=== PATIENT | female | born 1960 | race Caucasian/White ===

== ENCOUNTER 2023-02-07 09:20 | Outpatient (AMB) | payer OTHER, SELFPAY ==
--- NOTE | 2023-02-07 09:23 | MHC.PC.OV ---
Vital Signs 02/07/23 09:24 Height 5 ft 8 in Weight 216 lb BMI 32.8 BP 126/84 Blood Pressure Location Lt brachial Position Sitting Pulse 68 Pulse Source Pulse Oximeter Pulse Oximetry (%) 100 Oxygen Delivery Method Room Air Intake Visit Reasons: New Patient Physical Intake Note: Pt is here today for New patient visit. PE Allergies No Known Allergies Allergy (Verified 02/07/23 09:30) Medication List - Last Reconciled 02/07/23 by Tarah Silvestre MD amlodipine 5 mg PO DAILY omeprazole 20 mg PO DAILY telmisartan 40 mg PO DAILY Tobacco use date assessed: 02/07/23 Dental Screening Dental Screen Date: 02/07/23 Did you have a dental visit in the last 12 months?: Yes Did you have a dental problem in the last 6 months where you did not have access to dental care?: No Was dental information given to patient?: Patient has dentist HPI New Patient Physical HPI Details Pt presents for [employer] PE. 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 1. Little interest or pleasure in doing things: not at all 2. Feeling down, depressed, or hopeless: not at all 3. Trouble falling or staying asleep, or sleeping too much: not at all 4. Feeling tired or having little energy: not at all 5. Poor appetite or overeating: not at all 6. Feeling bad about yourself - or that you are a failure or have let yourself or your family down: not at all 7. Trouble concentrating on things, such as reading the newspaper or watching television: not at all 8. Moving or speaking so slowly that other people could have noticed. Or the opposite - being so fidgety or restless that you have been moving around a lot more than usual: not at all 9. Thoughts that you would be better off or of hurting yourself in some way: not at all Total score: 0 Depression Screening Interpretation: Negative Source: Developed by Drs. Emerson Montgomery, Loni Espinosa, Kannan French and colleagues, with an educational jennifer from [employer]. Thrive Questionnaire Date Thrive assessed: 02/07/23 I am a: Patient What is your living situation today?: I have a steady place to live Within the past 12 months, did the food you bought not last and you didn't have the money to get more?: Never true Within the past 12 months, did you worry whether your food would run out before you got money to buy more?: Never true Do you have trouble paying for medicines?: No Do you have trouble getting transportation to medical appointments?: No Do you have trouble paying your heating and electricity bill?: No Do you have trouble taking care of your child, family member or friend?: No Do you have trouble with day-to-day activities such as bathing, preparing meals, shopping, managing finances, etc.?: No Are you currently unemployed and looking for a job?: No Are you interested in more education?: Yes Please select the resources that you would like help with: Education Currently or been in a relationship where the following occur: no concerns reported AUDIT C Alcohol Use Questionnaire (AUDIT-C) 1. How often do you have a drink containing alcohol?: Never 3. How often do you have six or more drinks on one occasion?: Never Total Score: 0 TAINA-7 AMB Questionnaire ATINA-7 Date TAINA - 7 assessed: 02/07/23 Feeling nervous, anxious, or on edge: 0 = Not at all Not being able to stop or control worryin = Not at all Worrying too much about different things: 0 = Not at all Trouble relaxin = Not at all Being so restless that it is hard to sit still: 0 = Not at all Becoming easily annoyed or irritable: 0 = Not at all Feeling afraid as if something awful might happen: 0 = Not at all Total TAINA-7 score (0-4 normal; 5-9 mild; 10-14 moderate; 15-21 severe): 0 Source: Developed by Drs. Emerson Montgomery, Loni Espinosa, Kannan French and colleagues, with an educational jennifer from [employer]. Review of Systems Const All systems reviewed & are unremarkable except as noted in HPI and below Reports no additional complaints Eyes Reports no additional complaints ENT Reports no additional complaints Card Reports no additional complaints Resp Reports no additional complaints GI Reports no additional complaints Reports no additional complaints Musc Reports no additional complaints Physical exam (Primary Care) Vital Signs: Last Vital Signs Pulse 68 02/07/23 09:24 BP 126/84 02/07/23 09:24 Pulse Ox 100 02/07/23 09:24 Oxygen Delivery Method Room Air 02/07/23 09:24 BMI result Body Mass Index 32.8 Tobacco/Smoking Status: Tobacco use Status Tobacco use date assessed 02/07/23 02/07/23 09:38 Patient Tobacco Use Status Never used Tobacco 02/07/23 10:01 e-Cigarette/Vaping Use Never Used 02/07/23 10:01 Depression Screening Interpretation: Negative Currently or been in a relationship where the following occur: no concerns reported Const General: no acute distress HENMT Head: Yes normal to inspection General nose exam: Normal external nose present Mouth: Normal oral and palatal mucosa present Throat: Yes posterior oropharynx normal Eyes General: appearance normal, both eyes and all related structures Neck Neck: Yes no lymphadenopathy and Yes supple Resp Effort & Inspection: normal respiratory effort Auscultation: clear to auscultation bilaterally Cardio Rhythm: regular rhythm Heart sounds: S1 normal heart sound present and S2 normal heart sound present GI Inspection: Yes normal to inspection Palpation (GI): Soft to palpation Percussion: Yes normal to percussion Auscultation: normal bowel sounds Assessment and Plan Assessment & Plan (1) HTN (hypertension): Code(s): I10 - Essential (primary) hypertension Plan: Continue current medications (2) Hyperlipemia: Code(s): E78.5 - Hyperlipidemia, unspecified Plan: Check lipid profile (3) Normal pelvic exam: 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 Panel Fast Today I10 - Essential (primary) hypertension, Z00.00 - Encounter for general adult medical examination without abnormal findings Coding Level of Care Code New Pt Prev Care 40-64y(25772) Diagnoses HTN (hypertension) I10 Hyperlipemia E78.5 Normal pelvic exam Z01.419 Annual physical exam Z00.00 Overweight E66.3 Left ear hearing loss H91.92
[2023-02-07 09:24] VITALS: BP 126/84; PULSE 68; O2SAT 100; BMI 32.8
== END 2023-02-07 10:23 | disposition home or self-care (01) ==
PROVIDERS: PCP Internal Medicine; Visit Provider Internal Medicine
DX: Z00.00 Encounter for general adult medical examination without abnormal findings (principal); I10 Essential (primary) hypertension; E78.5 Hyperlipidemia, unspecified; E66.3 Overweight; H91.92 Unspecified hearing loss, left ear
CPT/HCPCS: 99386

== ENCOUNTER 2023-02-07 10:12 | Outpatient (REF) | payer OTHER, SELFPAY ==
[2023-02-07 13:33] LABS: MANUAL DIFF FLAG NO
[2023-02-07 13:51] LABS: Basophils Percent Auto 0.9 % (0-2); Eosinophils Absolute Auto 0.1 X10*3/uL (0.0-0.4); Eosinophils Percent Auto 2.6 % (0-4); Hematocrit 37.2 % (37.0-47.0); Hemoglobin 12.1 g/dl (12.0-16.0); Imm Gran Abs Auto 0.01 X10*3/uL (0.00-0.03); Imm Gran Pct Auto 0.3 % (0.0-0.4); Lymphocytes Absolute Auto 1.5 X10*3/uL (1.2-4.9); Lymphocytes Percent Auto 43.7 % (20-40); Mean Corpuscular HGB Conc 32.5 g/dl (31.0-35.0); Mean Corpuscular Hemoglobin 28.5 pg (27.0-33.0); Mean Corpuscular Volume 87.7 fL (80.0-98.0); Mean Platelet Volume 9.5 fL (9.4-12.3); Monocytes Absolute Auto 0.2 X10*3/uL (0.1-1.2); Neutrophils Absolute Auto 1.6 x10*3/uL (2.0-8.3); Neutrophils Percent Auto 46.5 % (45-73); Platelet Count 290 X10*3/uL (160-400); Red Blood Count 4.24 X10*6/uL (4.20-5.50); Red Cell Distribution Width 13.9 % (11.0-16.0); White Blood Count 3.5 X10*3/uL (4.8-10.8)
[2023-02-07 14:58] LABS: Alanine Aminotransferase 12 U/L (0-31); Albumin Level 4.4 g/dL (3.5-5.0); Alkaline Phosphatase 64 U/L (39-117); Anion Gap 10 (12-20); Aspartate Amino Transferase 19 U/L (5-31); Bilirubin Total 0.3 mg/dL (0.0-1.0); Blood Urea Nitrogen 15 mg/dL (9-16); Calcium 9.2 mg/dL (8.4-10.2); Carbon Dioxide 26 mmol/L (22-29); Chloride 107 mmol/L (96-108); Cholesterol 263 mg/dL (<200); Estimated Glomerular Filt Rate 48; Glucose Fasting 105 mg/dL (60-99); HDL Cholesterol 62 mg/dL (>40); LDL Cholesterol Calculated 184 mg/dL (<100); Potassium 3.9 mmol/L (3.3-5.1); Sodium 139 mmol/L (135-145); TSH reflex Free T4 2.58 uIU/mL (0.32-4.0); Total Protein 7.6 g/dL (6.5-8.0); Triglycerides 87 mg/dL (<150)
== END 2023-02-07 10:13 | disposition home or self-care (01) ==
LOC: HO.HMGCLDS 10:12
PROVIDERS: PCP Internal Medicine; Visit Provider Internal Medicine
DX: Z00.00 Encounter for general adult medical examination without abnormal findings (principal); I10 Essential (primary) hypertension
CPT/HCPCS: 36415; 80053; 80061; 84443; 85025

== ENCOUNTER 2024-02-15 11:10 | Outpatient (AMB) | payer OTHER, SELFPAY ==
[2024-02-15 12:14] VITALS: BP 120/80; PULSE 62; O2SAT 98; BMI 33.3
--- NOTE | 2024-02-15 12:14 | A.OFFPC_ITS ---
Vital Signs 02/15/24 12:14 Height 5 ft 8 in Weight 219 lb BMI 33.3 BP 120/80 Blood Pressure Location Rt brachial Position Sitting Pulse 62 Pulse Source Pulse Oximeter Pulse Oximetry (%) 98 Intake Visit Reasons: PE Allergies No Known Allergies Allergy (Verified 02/15/24 12:15) Medication List - Last Reconciled 02/15/24 by Tarah Silvestre MD amlodipine 5 mg PO DAILY omeprazole 20 mg PO DAILY pravastatin 40 mg PO BEDTIME telmisartan 40 mg PO DAILY Tobacco use date assessed: 02/15/24 Dental Screening Dental Screen Date: 02/15/24 Did you have a dental visit in the last 12 months?: Yes Did you have a dental problem in the last 6 months where you did not have access to dental care?: No Was dental information given to patient?: Patient has dentist HPI PE HPI Details Patient presents for a physical. She lives in [place] and has been taking care of her aging parents. 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 1. Little interest or pleasure in doing things: not at all 2. Feeling down, depressed, or hopeless: not at all 3. Trouble falling or staying asleep, or sleeping too much: not at all 4. Feeling tired or having little energy: not at all 5. Poor appetite or overeating: not at all 6. Feeling bad about yourself - or that you are a failure or have let yourself or your family down: not at all 7. Trouble concentrating on things, such as reading the newspaper or watching television: not at all 8. Moving or speaking so slowly that other people could have noticed. Or the opposite - being so fidgety or restless that you have been moving around a lot more than usual: not at all 9. Thoughts that you would be better off or of hurting yourself in some way: not at all Total score: 0 Depression Screening Interpretation: Negative Depression Screening Done: Yes 25986 - PHQ-9 Billing: Yes Source: Developed by Drs. Emerson Montgomery, Loni Espinosa, Kannan French and colleagues, with an educational jennifer from [address] Thrive Questionnaire Date Thrive assessed: 02/15/24 I am a: Patient What is your living situation today?: I have a steady place to live Within the past 12 months, did the food you bought not last and you didn't have the money to get more?: Never true Within the past 12 months, did you worry whether your food would run out before you got money to buy more?: Never true Do you have trouble paying for medicines?: No Do you have trouble getting transportation to medical appointments?: No Do you have trouble paying your heating and electricity bill?: No Do you have trouble taking care of your child, family member or friend?: No Do you have trouble with day-to-day activities such as bathing, preparing meals, shopping, managing finances, etc.?: No Are you currently unemployed and looking for a job?: No Are you interested in more education?: No Please select the resources that you would like help with: None Currently or been in a relationship where the following occur: No concerns reported THRIVE Score: 0 AUDIT C Alcohol Use Questionnaire (AUDIT-C) 1. How often do you have a drink containing alcohol?: Never 3. How often do you have six or more drinks on one occasion?: Never Total Score: 0 Score Reviewed/Action Taken: Yes TAINA-7 AMB Questionnaire TAINA-7 Date TAINA - 7 assessed: 02/15/24 Feeling nervous, anxious, or on edge: 0 = Not at all Not being able to stop or control worryin = Not at all Worrying too much about different things: 0 = Not at all Trouble relaxin = Not at all Being so restless that it is hard to sit still: 0 = Not at all Becoming easily annoyed or irritable: 0 = Not at all Feeling afraid as if something awful might happen: 0 = Not at all Total TAINA-7 score (0-4 normal; 5-9 mild; 10-14 moderate; 15-21 severe): 0 Source: Developed by Drs. Emerson Montgomery, Loni Espinosa, Kannan French and colleagues, with an educational jennifer from [address] Review of Systems Const All systems reviewed & are unremarkable except as noted in HPI and below Eyes Reports no additional complaints ENT Reports no additional complaints Card Reports no additional complaints Resp Reports no additional complaints GI Reports no additional complaints Reports no additional complaints Physical exam (Primary Care) Vital Signs: Last Vital Signs Pulse 62 02/15/24 12:14 BP 120/80 02/15/24 12:14 Pulse Ox 98 02/15/24 12:14 BMI result Body Mass Index 33.3 Tobacco/Smoking Status: Tobacco use Status Tobacco use date assessed 02/15/24 02/15/24 12:17 Patient Tobacco Use Status Never used Tobacco 02/15/24 12:17 e-Cigarette/Vaping Use Never Used 02/15/24 12:17 PHQ-9: PHQ-9 Score PHQ-9: Total score 0 02/15/24 12:17 Depression Screening Interpretation: Negative Thrive Assessment: Date of Thrive Assessment Date Thrive assessed 02/15/24 02/15/24 12:17 Currently or been in a relationship where the following occur: No concerns reported Const General: no acute distress HENMT Head: Yes normal to inspection Ears: TM's normal bilaterally Face and sinus: Yes normal facial exam Eyes General: appearance normal, both eyes and all related structures Neck Neck: Yes no lymphadenopathy and Yes supple Resp Effort & Inspection: normal respiratory effort Auscultation: clear to auscultation bilaterally Cardio Rhythm: regular rhythm Heart sounds: S1 normal heart sound present and S2 normal heart sound present GI Inspection: Yes normal to inspection Palpation (GI): Soft to palpation Percussion: Yes normal to percussion Auscultation: normal bowel sounds Assessment and Plan Assessment & Plan (1) HTN (hypertension): Code(s): I10 - Essential (primary) hypertension Plan: Continue current medications (2) Hyperlipemia: Code(s): E78.5 - Hyperlipidemia, unspecified Plan: Continue low-cholesterol diet increase exercise weight loss discussed with the patient. Start pravastatin 40 mg and check lipid profile in 2 months and 1 year (3) Annual physical exam: Code(s): Z00.00 - Encounter for general adult medical examination without abnormal findings Plan: Well-balanced diet regular physical activity weight loss discussed with the patient. She is up-to-date with the mammogram colonoscopy in pelvic exam by technical support 1 software engineer (4) Hx of colonoscopy: Comment: negative 2015 Code(s): Z98.890 - Other specified postprocedural states Orders: Orders Vitamin D 25-OH Total 2 Months E78.5 - Hyperlipidemia, unspecified, I10 - Essential (primary) hypertension Comprehensive [place]. Panel Fast 1 Year E78.5 - Hyperlipidemia, unspecified, I10 - Essential (primary) hypertension, Z00.00 - Encounter for general adult medical examination without abnormal findings Lipid Panel 1 Year E78.5 - Hyperlipidemia, unspecified, I10 - Essential (primary) hypertension, Z00.00 - Encounter for general adult medical examination without abnormal findings TSH reflex Free T4 1 Year E78.5 - Hyperlipidemia, unspecified, I10 - Essential (primary) hypertension, Z00.00 - Encounter for general adult medical examination without abnormal findings Lipid Panel 2 Months E78.5 - Hyperlipidemia, unspecified, I10 - Essential (primary) hypertension Complete Blood Count Auto Diff 1 Year E78.5 - Hyperlipidemia, unspecified, I10 - Essential (primary) hypertension, Z00.00 - Encounter for general adult medical examination without abnormal findings Vitamin D 25-OH Total 1 Year E78.5 - Hyperlipidemia, unspecified, I10 - Essential (primary) hypertension, Z00.00 - Encounter for general adult medical examination without abnormal findings Medications: New pravastatin 40 mg PO BEDTIME 90 tabs 3RF Refilled amlodipine 5 mg PO DAILY 90 tabs 3RF omeprazole 20 mg PO DAILY 90 caps 3RF telmisartan 40 mg PO DAILY 90 tabs 3RF Coding Level of Care Code Est Pt Prev Care 40-64y(79800) Diagnoses HTN (hypertension) I10 Hyperlipemia E78.5 Annual physical exam Z00.00 Hx of colonoscopy Z98.890
== END 2024-02-15 12:50 | disposition home or self-care (01) ==
PROVIDERS: PCP Internal Medicine; Visit Provider Internal Medicine
DX: I10 Essential (primary) hypertension (principal); E78.5 Hyperlipidemia, unspecified; Z00.00 Encounter for general adult medical examination without abnormal findings; Z98.890 Other specified postprocedural states

== ENCOUNTER → 2024-02-15 11:10 | Outpatient (BNVA) | payer OTHER, SELFPAY | PROVIDERS: PCP Internal Medicine; Visit Provider Internal Medicine | DX: Z00.00 Encounter for general adult medical examination without abnormal findings (principal); I10 Essential (primary) hypertension; E78.5 Hyperlipidemia, unspecified; Z98.890 Other specified postprocedural states | CPT/HCPCS: 96127; 99396 ==

== ENCOUNTER 2024-11-13 10:10 | Outpatient (AMB) | payer OTHER, SELFPAY ==
--- NOTE | 2024-11-13 10:12 | A.OFFPC_ITS ---
Vital Signs 11/13/24 10:16 Height 5 ft 8 in Weight 232 lb BMI 35.3 BP 138/74 Blood Pressure Location Lt brachial Position Sitting Respiration 20 Pulse 72 Pulse Source Pulse Oximeter Temp 98.3 F Temp Source Oral Pulse Oximetry (%) 96 Oxygen Delivery Method Room Air Intake Visit Reasons: Follow up swelling in feet requesting referral Intake Note: Pt is here today for a sikc visit. Pt c/o swelling in her feet and ankles. Allergies No Known Allergies Allergy (Verified 11/13/24 10:18) Medication List - Last Reconciled 11/13/24 by Tarah Silvestre MD amlodipine 5 mg PO DAILY cholecalciferol (vitamin D3) PO omeprazole 20 mg PO DAILY pravastatin 40 mg PO BEDTIME telmisartan 40 mg PO DAILY Tobacco use date assessed: 11/13/24 Dental Screening Dental Screen Date: 11/13/24 Did you have a dental visit in the last 12 months?: Yes Did you have a dental problem in the last 6 months where you did not have access to dental care?: No Was dental information given to patient?: Patient has dentist HPI Follow up swelling in feet requesting referral HPI0 Details Pt presents for the follow-up. Hypertension hyperlipidemia controlled on current medications. Patient noticed increased lower extremity swelling wor se at the end of the day. 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 Patient is concerned about her heart because her father was diagnosed with congestive heart failure after mitral valve surgery and he from MRSA sepsis in May at 88. Patient quit her job and has been taking care of her mother with dementia. Patient does not exercise regularly and denies PND orthopnea pa lpitations GI or complaints. 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 1. Little interest or pleasure in doing things: not at all 2. Feeling down, depressed, or hopeless: not at all 3. Trouble falling or staying asleep, or sleeping too much: not at all 4. Feeling tired or having little energy: not at all 5. Poor appetite or overeating: not at all 6. Feeling bad about yourself - or that you are a failure or have let yourself or your family down: not at all 7. Trouble concentrating on things, such as reading the newspaper or watching television: not at all 8. Moving or speaking so slowly that other people could have noticed. Or the opposite - being so fidgety or restless that you have been moving around a lot more than usual: not at all 9. Thoughts that you would be better off or of hurting yourself in some way: not at all Total score: 0 Depression Screening Interpretation: Negative Depression Screening Done: Yes 17895 - PHQ-9 Billing: Yes Source: Developed by Drs. Emerson Montgomery, Loni Espinosa, Kannan French and colleagues, with an educational jennifer from [employer]. Thrive Questionnaire Date Thrive assessed: 11/13/24 I am a: Patient What is your living situation today?: I have a steady place to live Within the past 12 months, did the food you bought not last and you didn't have the money to get more?: Never true Within the past 12 months, did you worry whether your food would run out before you got money to buy more?: Never true Do you have trouble paying for medicines?: No Do you have trouble getting transportation to medical appointments?: No Do you have trouble paying your heating and electricity bill?: No Do you have trouble taking care of your child, family member or friend?: No Do you have trouble with day-to-day activities such as bathing, preparing meals, shopping, managing finances, etc.?: No Are you currently unemployed and looking for a job?: No Are you interested in more education?: Yes Please select the resources that you would like help with: None Currently or been in a relationship where the following occur: No concerns reported THRIVE Score: 0 AUDIT C Alcohol Use Questionnaire (AUDIT-C) 1. How often do you have a drink containing alcohol?: Never 3. How often do you have six or more drinks on one occasion?: Never Total Score: 0 TAINA-7 AMB Questionnaire TAINA-7 Date TAINA - 7 assessed: 11/13/24 Feeling nervous, anxious, or on edge: 0 = Not at all Not being able to stop or control worryin = Not at all Worrying too much about different things: 0 = Not at all Trouble relaxin = Not at all Being so restless that it is hard to sit still: 0 = Not at all Becoming easily annoyed or irritable: 0 = Not at all Feeling afraid as if something awful might happen: 0 = Not at all Total TAINA-7 score (0-4 normal; 5-9 mild; 10-14 moderate; 15-21 severe): 0 Source: Developed by Drs. Emerson Montgomery, Loni Espinosa, Kannan French and colleagues, with an educational jennifer from [employer]. TAINA-7 Assessment Billing TAINA-7 Assessment Tool: TAINA-7 Assessment 31394 Review of Systems Const All systems reviewed & are unremarkable except as noted in HPI and below Eyes Reports no additional complaints ENT Reports no additional complaints Card Reports no additional complaints Resp Reports no additional complaints GI Reports no additional complaints Reports no additional complaints Physical exam (Primary Care) Vital Signs: Last Vital Signs Temp 98.3 F 11/13/24 10:16 Pulse 72 11/13/24 10:16 Resp 20 11/13/24 10:16 BP 138/74 11/13/24 10:16 Pulse Ox 96 11/13/24 10:16 Oxygen Delivery Method Room Air 11/13/24 10:16 BMI result Body Mass Index 35.3 Tobacco/Smoking Status: Tobacco use Status Tobacco use date assessed 11/13/24 11/13/24 10:21 Patient Tobacco Use Status Never used Tobacco 11/13/24 10:21 e-Cigarette/Vaping Use Never Used 06/24/25 10:14 PHQ-9: PHQ-9 Score PHQ-9: Total score 0 11/13/24 11:05 Depression Screening Interpretation: Negative Thrive Assessment: Date of Thrive Assessment Date Thrive assessed 11/13/24 11/13/24 10:21 Currently or been in a relationship where the following occur: No concerns reported Const General: no acute distress Eyes General: appearance normal, both eyes and all related structures Neck Neck: Yes no lymphadenopathy and Yes supple Resp Effort & Inspection: normal respiratory effort Auscultation: clear to auscultation bilaterally Cardio Rhythm: regular rhythm Heart sounds: S1 normal heart sound present and S2 normal heart sound present GI Inspection: Yes normal to inspection Palpation (GI): Soft to palpation Percussion: Yes normal to percussion Auscultation: normal bowel sounds Extrem Other: 1+ pitting edema bilaterally and chronic lymphedema of lower extremities Coding Level of Care Code Est Pt Level 4 (02922) Diagnoses HTN (hypertension) I10 Edema R60.9 Hyperlipidemia E78.5 Additional Codes TAINA-7 Assessment Billing - TAINA-7 Assessment Tool: TAINA-7 Assessment 57019 ([id number]) PHQ-9 - 12786 - PHQ-9 Billing: Yes ([id number]) Assessment & Plan Assessment & Plan (1) HTN (hypertension): Code(s): I10 - Essential (primary) hypertension Category: Medical Plan: Continue current medications (2) Edema: Comment: Lower extremities Code(s): R60.9 - Edema, unspecified Category: Medical Plan: Patient will be referred to her family's anthropology instructor as requested. She was advised to increase physical activity, elevate lower extremities decrease sodium intake and lose weight (3) Hyperlipidemia: Code(s): E78.5 - Hyperlipidemia, unspecified Category: Medical Plan: Continue statin Orders: Referrals Cardiology Referral I10 - Essential (primary) hypertension, R60.9 - Edema, unspecified
[2024-11-13 10:16] VITALS: BP 138/74; PULSE 72; RESP 20; TEMP 36.8; O2SAT 96; BMI 35.3
--- OUTSIDE RECORDS SUMMARY | 2024-11-13 11:16 | XMS_ITS | Referral Summary ---
Author Organization [facility] Address [address] [place] [address] Care Team Providers Care Pre Sales Architect Name Role Phone Nirmala Tarah Primary Care Provider [phone] Medications fluticasone propionate (FLONASE) 50 mcg/actuation nasal spray INSTIL 2 SPRAYS IN EACH NOSTRIL EVERY DAY NEEDED FOR CONGESTION 16 mL 2 1 Active losartan (COZAAR) 25 mg tablet TAKE 2 TABLETS BY MOUTH EVERY DAY 180 tablet 3 2 Active Social History Tobacco Use Types Packs/Day Years Used Date Smoking Tobacco: Never Assessed Comments No Sex and Gender Information Value Date Recorded Sex Assigned at Female 03/09/2024 8:27 AM EDT Legal Sex Female 3:59 PM EDT Gender Identity Not on file Sexual Orientation Not on file Last Filed Vital Signs Vital Sign Reading Time Taken Comments Blood Pressure - - Pulse - - Temperature - - Respiratory Rate - - Oxygen Saturation - - Inhaled Oxygen Concentration - - Weight 90.7 kg (200 lb) 03/09/2024 12:33 PM EDT Height 172.7 cm (5' 8 ) 03/09/2024 12:33 PM EDT Body Mass Index 30.41 03/09/2024 12:33 PM EDT Plan of Treatment Not on file Procedures * Due to [place] state law, this organization might not be sharing negative HIV tests. Procedure Name Priority Date/Time Associated Diagnosis Comments COMPREHENSIVE METABOLIC PANEL Routine 04/16/2024 2:48 PM EST Hyperlipidemia, unspecified hyperlipidemia type Routine general medical examination at a health care facility Hypertension, unspecified type CASPER BILATERAL SCREENING DIGITAL MAMMOGRAM WITH OUSMANE Routine 03/09/2024 12:44 PM EDT Screening mammogram for breast cancer PAP NO HPV, CONVERSION Routine 02/24/2001 10:56 AM EDT from Last 3 Months or Most Recently Relevant to Health Maintenance Results * Due to [place] state law, this organization might not be sharing negative HIV tests. * (ABNORMAL) Comprehensive Metabolic Panel (04/16/2024 2:48 PM EST) NA 141 136 - 145 mmol/L 04/16/2024 3:32 PM EST [facility] K 3.8 3.5 - 5.1 mmol/L 04/16/2024 3:32 PM EST [facility] Cl 106 98 - 109 mmol/L 04/16/2024 3:32 PM EST [facility] CO2 25 22 - 32 mmol/L 04/16/2024 3:32 PM EST [facility] Anion Gap 14 >=0 04/16/2024 3:32 PM EST [facility] Glucose 97 60 - 99 mg/dL 04/16/2024 3:32 PM EST [facility] Creatinine 1.06 0.50 - 1.12 mg/dL 04/16/2024 3:32 PM EST [facility] Calcium 9.2 8.4 - 10.4 mg/dL 04/16/2024 3:32 PM EST [facility] Total Protein 7.3 6.6 - 8.7 g/dL 04/16/2024 3:32 PM EST [facility] Albumin 4.2 3.5 - 5.0 g/dL 04/16/2024 3:32 PM EST [facility] Bilirubin, Total 0.4 0.2 - 1.2 mg/dL 04/16/2024 3:32 PM EST [facility] Alkaline Phosphatase 65 40 - 129 U/L 04/16/2024 3:32 PM EST [facility] AST 21 0 - 33 U/L 04/16/2024 3:32 PM EST [facility] ALT 12 <=33 U/L 04/16/2024 3:32 PM EST [facility] BUN 20 8 - 23 mg/dL 04/16/2024 3:32 PM EST [facility] eGFR 59(L) >=60 mL/min/1. 73m2 04/16/2024 3:32 PM EST [facility] Comment:The estimated glomer ular filtration rate (eGFR) is calculated using a new formula developed by the NKF-ASN task force to eliminate race-based correction factors. The new formula uses serum/plasma creatinine, age, and gender to determine eGFR. A value below 60mls/min might indicate kidney disease and will be flagged. For additional information, see Layne et al, Am J Kidney Dis. 2021;79(2):268- 288, A Unifying Approach for GFR estimation: Recommendations of the NKF-ASN Task Force on Reassessing the Inclusion of Race in Diagnosing Kidney Disease . Globulin, Total 3.1 2.1 - 4.2 g/dL 04/16/2024 3:32 PM [facility] A/G Ratio 1.4(L) 1.5 - 3.0 04/16/2024 3:32 PM EST [facility] Blood Structure of peripheral vein / Unknown Venipuncture / Unknown 04/16/2024 2:48 PM EST 04/16/2024 2:59 PM EST [facility] BLOOD ORDERABLES Final Resul t [facility] [address] [address], * CASPER Bilateral Screening Digital Mammogram With Ousmane (03/09/2024 12:44 PM EDT) Anatomical Region Laterality Modality Breast Bilateral Mammography Narrative 03/17/2024 11:11 AM EDT Exam Date: 03/09/24 [facility] [address] [place], [place] [address] EXAMINATION CASPER Bilateral Screening Digital Mammogram With Ousmane. INDICATION Diandra Rachel is a 64 y.o. female and is seen for: CASPER Bilateral Screening Digital Mammogram With Ousmane. CC and MLO views were obtained. FDA approved Discovery Machine AI (artificial intelligence) software and R2 CAD were used as a concurrent reading aid in the interpretation of this study. COMPARISON Compared to: 03/08/2023 CASPER Bilateral Screening Digital Mammogram With Ousmane, 02/15/2022 CASPER Screening Digital Mammogram, 02/09/2021 [facility]APER Screening Digital Mammogram, 02/04/2020 CASPER Screening Digital Mammogram, 01/29/2019 CASPER Screening Digital Mammogram, and 01/26/2018 CASPER Screening Digital Mammogram Bilateral Breast Findings: The breasts are heterogeneously dense, which may obscure small masses. No significant masses, calcifications or other abnormalities are seen. IMPRESSION BI-RADS ATLAS category (overall): 1 - Negative MANAGEMENT Routine Screening Mammogram in 1 Year is recommended for bilateral. The patient was entered into a reminder system with a subsequent mammography target date. The patient s lifetime risk for breast cancer was calculated using Tyrer-Cuzick: 12.6%. Women with lifetime risk <20% and dense breast tissue may benefit from supplemental screening with breast MRI or automated breast ultrasound (ABUS) depending on risk factors. [email or web address] Breast MRI is available at many [facility] MRI locations. To schedule, enter an MRI order into [facility] Epic (MRI BREAST BILAT SCREENING W WO CONTRAST), call [phone] or [phone], or fax [phone]. ABUS is available at two [facility] sites. To schedule, enter an ABUS order into [facility] (ABUS), contact [facility] Central Scheduling (call [phone] or fax order [phone]), or contact [facility] Central Scheduling (call [phone] or fax order [phone]). If this radiology report contains a blank impression section, it is an incomplete radiology report. Please contact the interpreting radiologist or applicable radiology division as soon as possible to obtain the completed interpretation. Malorie Tavarez MD us Tarah Hernandez IM BI PROCEDURES Final Result * Pap no HPV (02/24/2001 10:56 AM EDT) Path Procedure TPG ([id number]) 1 Edited by: [id number] LB-REINIER [facility] ANATOMIC PATHOLOGY - BIOTECH THREE Specimen Labeled As: 1 CERVICAL/ENDOCER VICAL CYTO MATERIAL - Edited by: [id number] LB-RE [facility] ANATOMIC PATHOLOGY - BIOTECH THREE Diagnosis THINPREP PAP TEST ADEQUACY: Satisfactory but limited by no endocervical component GENERAL DIAGNOSTIC CATEGORY: Within NORMAL limits Edited by: [id number] LEWIST [facility] ANATOMIC PATHOLOGY - BIOTE[facility] THREE Gynecologic Clinical Data Specimen source:, THINPREP (ENDOCERVICAL ONLY) [facility] ANATOMIC PATHOLOGY - BIOTE[facility] THREE Gynecologic Clinical Data First date of LMP:, 02/09/01 [facility] ANATOMIC PATHOLOGY - [facility] THREE Gynecologic Clinical Data Gynecologic findings:, PREV.ABN.PAP. [facility] ANATOMIC PATHOLOGY - [facility] THREE Marker 1 QPG,QC ARENAS [facility] ANATOMIC PATHOLOGY - BIOTECH THREE Marker 2 RG,[facility] ANATOMIC PATHOLOGY - BIOTECH THREE Marker 3 TP,THIN PREP [facility] ANATOMIC PATHOLOGY - BIOTECH THREE Marker 4 WNL,Within Normal limits [facility] ANATOMIC PATHOLOGY - [facility] THREE Cc Results To MAUREEN NESBITT [facility] ANATOMIC PATHOLOGY - BIOTECH THREE Signature REPORT SIGNED: TAI JOHN 03/08/01 [facility] ANATOMIC PATHOLOGY - BIOTECH THREE Sign Out Audit TAI JOHN [id number] FINAL [place] [id number] [facility] ANATOMIC PATHOLOGY - BIOTECH THREE Cytology / Unknown 10:56 AM EDT 02/28/2001 10:56 AM EDT us Historical Conversion Provider LAB HISTORICAL RE SULTS Final Result [facility] ANATOMIC PATHOLOGY - [facility] THREE [address] [place] [address], from Last 3 Months or Most Recently Relevant to Health Maintenance Insurance [facility] MEDICAID Care Teams Pre Sales Architect Relationship Specialty Start Date End Date Tarah Silvestre 1960 [place] [address] PCP - General Internal Medicine 07/16/23
== END 2024-11-13 11:21 | disposition home or self-care (01) ==
LOC: HO.HMCC 10:11
PROVIDERS: PCP Internal Medicine; Visit Provider Internal Medicine
DX: I10 Essential (primary) hypertension (principal); R60.9 Edema, unspecified; E78.5 Hyperlipidemia, unspecified

== ENCOUNTER → 2024-11-13 10:10 | Outpatient (BNVA) | payer OTHER, SELFPAY | PROVIDERS: PCP Internal Medicine; Visit Provider Internal Medicine | DX: I10 Essential (primary) hypertension (principal); R60.9 Edema, unspecified; E78.5 Hyperlipidemia, unspecified | CPT/HCPCS: 96127; 99212 ==

== ENCOUNTER 2025-02-19 11:58 | Outpatient (AMB) | payer OTHER, SELFPAY ==
--- OUTSIDE RECORDS SUMMARY | 2025-02-14 15:30 | XMS_ITS | Encounter Summary ---
Author Organization [facility] Address [address] [place] [address] Care Team Providers Care Outside Sales Professional Name Role Phone Tarah Silvestre Primary Care Provider [phone] Encounter Details Date Type Department Care Team (Late st Contact Info) Description 02/14/2025 3:30 PM EDT Lab [facility] Department [address] [place] [address] Hyperlipidemia, unspecified hyperlipidemia type (Primary Dx); Routine general medical examination at a health care facility; Essential (primary) hypertension Social History Tobacco Use Types Packs/Day Years Used Date Smoking Tobacco: Never Assessed Comments No Sex and Gender Information Value Date Recorded Sex Assigned at Female 03/09/2024 8:27 AM EDT Legal Sex Female 3:59 PM EDT Gender Identity Not on file Sexual Orientation Not on file documented as of this encounter Plan of Treatment Upcoming Encounters Date Type Department Care Team (Late st Contact Info) Description 03/11/2025 2:40 PM EDT Appointment [facility] [address] [place] [address] documented as of this encounter Procedures * Due to [place] state law, this organization might not be sharing negative HIV tests. Procedure Name Priority Date/Time Associated Diagnosis Comments TSH REFLEX FREE T4 Routine 02/14/2025 2: 00 PM EDT Hyperlipidemia, unspecified hyperlipidemia type Routine general medical examination at a health care facility Essential (primary) hypertension CBC AUTO DIFFERENTIAL Routine 02/14/2025 2:00 PM EDT Hyperlipidemia, unspecified hyperlipidemia type Routine general medical examination at a health care facility Essential (primary) hypertension VITAMIN D, 25-HYDROXY, TOTAL, IMMUNOASSAY Routine 02/14/2025 2:00 PM EDT Hyperlipidemia, unspecified hyperlipidemia type Routine general medical examination at a health care facility Essential (primary) hypertension LIPID PANEL Routine 02/14/2025 2:00 PM EDT Hyperlipidemia, unspecified hyperlipidemia type Routine general medical examination at a health care facility Essential (primary) hypertension COMPREHENSIVE METABOLIC PANEL Routine 02/14/2025 2:00 PM EDT Hyperlipidemia, unspecified hyperlipidemia type Routine general medical examination at a health care facility Essential (primary) hypertension documented in this encounter Results * Due to [place] state law, this organization might not be sharing negative HIV tests. * (ABNORMAL) Comprehensive Metabolic Panel (02/14/2025 2:00 PM EDT) NA 140 136 - 145 mmol/L 02/14/2025 3:10 PM EDT [facility] K 4.2 3.5 - 5.1 mmol/L 02/14/2025 3:10 PM EDT [facility] Cl 102 98 - 109 mmol/L 02/14/2025 3:10 PM EDT [facility] CO2 24 22 - 32 mmol/L 02/14/2025 3:10 PM EDT [facility] Anion Gap 18 >=0 02/14/2025 3:10 PM EDT [facility] Glucose 102(H) 60 - 99 mg/dL 02/14/2025 3:10 PM EDT [facility] Creatinine 0.99 0.50 - 1.12 mg/dL 02/14/2025 3:10 PM EDT [facility] Calcium 9.0 8.4 - 10.4 mg/dL 02/14/2025 3:10 PM EDT [facility] Total Protein 7.7 6.6 - 8.7 g/dL 02/14/2025 3:10 PM EDT [facility] Albumin 4.4 3.5 - 5.0 g/dL 02/14/2025 3:10 PM EDT [facility] Bilirubin, Total 0.4 0.2 - 1.2 mg/dL 02/14/2025 3:10 PM EDT [facility] Alkaline Phosphatase 74 40 - 129 U/L 02/14/2025 3:10 PM EDT [facility] AST 24 0 - 33 U/L 02/14/2025 3:10 PM EDT [facility] ALT 18 <=33 U/L 02/14/2025 3:10 PM EDT [facility] BUN 16 8 - 23 mg/dL 02/14/2025 3:10 PM EDT [facility] eGFR 64 >=60 mL/min/1. 73m2 02/14/2025 3:10 PM EDT [facility] Comment:The estimated glomer ular filtration rate (eGFR) is calculated using a new formula developed by the NKF-ASN task force to eliminate race-based correction factors. The new formula uses serum/plasma creatinine, age, and gender to determine eGFR. A value below 60mls/min might indicate kidney disease and will be flagged. For additional information, see Lyane et al, Am J Kidney Dis. 2021;79(2):268- 288, A Unifying Approach for GFR estimation: Recommendations of the NKF-ASN Task Force on Reassessing the Inclusion of Race in Diagnosing Kidney Disease . Globulin, Total 3.3 2.1 - 4.2 g/dL 02/14/2025 3:10 PM EDT [facility] A/G Ratio 1.3(L) 1.5 - 3.0 02/14/2025 3:10 PM EDT [facility] Blood Structure of peripheral vein / Unknown Venipuncture / Unknown 02/14/2025 2:00 PM EDT 02/14/2025 2:11 PM EDT Tarah Silvestre LAB BLOOD ORDERABLES Final Resul t [facility] [address] [place] [address] [address] [place] [address], * Lipid panel (02/14/2025 2:00 PM EDT) Cholesterol 194 mg/dL 02/14/2025 3:10 PM EDT [facility] Comment: DESIRABLE: <200 mg/dL BORDERLINE HIGH: 200-239 mg/dL HIGH: >239 mg/dL Triglycerides 76 mg/dL 02/14/2025 3:10 PM EDT [facility] Comment: NORMAL: <150 mg/dL BORDERLINE HIGH: 150-199 mg/dL HIGH: 200-499 mg/dL VERY HIGH >499 mg/dL Cholesterol, HDL 62 mg/dL 02/15/20 3:10 PM EDT [facility] Comment: DESIRABLE: >60 mg/dL BORDERLINE: 40-59 mg/dL UNDESIRABLE: <40 mg/dL LDL Cholesterol 117 mg/dL 3:10 PM EDT [facility] Comment: OPTIMAL: <100 mg/dL NEAR OPTIMAL: <130 mg/dL BORDERLINE HIGH: 130-159 mg/dL HIGH: 160-189 mg/dL VERY HIGH: >189 mg/dL LDL-C is calculated using the Friedewald calculation. VLDL 15.2 mg/dL 02/14/2025 3:10 PM EDT [facility] Cholesterol/HDL Ratio 3.1 02/14/2025 3:10 PM EDT [facility] Blood Structure of peripheral vein / Unknown Venipuncture / Unknown 02/14/2025 2:00 PM EDT 02/14/2025 2:11 PM EDT Tarah [facility] LAB BLOOD ORDERABLES Final Resul t [facility] [address] [place] [address], * Vitamin D, 25-Hydroxy, Total, Immunoassay (02/14/2025 2:00 PM EDT) Vitamin D 25-OH 35.80 30.00 - 80.00 ng/mL 02/14/2025 2:55 PM EDT [facility] Blood Structure of peripheral vein / Unknown Venipuncture / Unknown 02/14/2025 2:00 PM EDT 02/14/2025 2:10 PM EDT Tarah Silvestre LAB BLOOD ORDERABLES Final Resul t [facility] [address] [facility] [address] [place] [address], * (ABNORMAL) CBC Auto Differential (02/14/2025 2:00 PM EDT) WBC 3.2(L) 4.8 - 10.8 10*3/uL 02/14/2025 2:19 PM EDT [facility] RBC 4.35 4.20 - 5.40 10*6/uL 02/14/2025 2:19 PM EDT [facility] Hemoglobin 12.6 11.7 - 15.5 g/dL 02/14/2025 2:19 PM EDT [facility] Hematocrit 37.1 35.7 - 45.8 % 02/14/2025 2:19 PM EDT [facility] MCV 85.3 81.0 - 99.0 fL 02/14/2025 2:19 PM EDT [facility] MCH 29.0 26.0 - 34.0 pg 02/14/2025 2:19 PM EDT [facility] MCHC 34.0 31.0 - 36.0 g/dL 02/14/2025 2:19 PM EDT [facility] RDW 13.5 12.0 - 15.0 % 02/14/2025 2:19 PM EDT [facility] RDW Standard Deviation 42.2 36.4 - 46.3 fL 02/14/2025 2:19 PM EDT [facility] Platelets 274 140 - 440 10*3/uL 02/14/2025 2:19 PM EDT [facility] MPV 9.0(L) 9.4 - 12.3 fL 02/14/2025 2:19 PM EDT [facility] Neutrophil % 40.2(L) 50.0 - 75.0 % 02/14/2025 2:19 PM EDT [facility] Immature Grans % 0.3 0.0 - 0.9 % 02/14/2025 2:19 PM EDT [facility] Lymphocyte % 47.8(H) 20.0 - 44.0 % 02/14/2025 2:19 PM EDT [facility] Monocyte % 7.9 0.0 - 14.0 % 02/14/2025 2:19 PM EDT [facility] Eosinophil % 2.5 0.0 - 5.0 % 02/14/2025 2:19 PM EDT [facility] Basophil % 1.3 0.0 - 2.0 % 02/14/2025 2:19 PM EDT [facility] Neutrophil # 1.27(L) 1.80 - 7.70 10*3/uL 02/14/2025 2:19 PM EDT [facility] Immature Grans # <0.03 0.00 - 0.03 10*3/uL 02/14/2025 2:19 PM EDT [facility] Lymphocyte # 1.50 1.00 - 4.75 10*3/uL 02/14/2025 2:19 PM EDT [facility] Monocyte # 0.30 0.00 - 0.60 10*3/uL 02/14/2025 2:19 PM EDT [facility] Eosinophil # 0.10 0.00 - 0.80 10*3/uL 02/14/2025 2:19 PM EDT [facility] Basophil # <0.03 0.00 - 0.20 10*3/uL 02/14/2025 2:19 PM EDT [facility] nRBC % 0.0 0 - 0 /100 WBCs 02/14/2025 2:19 PM EDT [facility] nRBC # <0.01 0.00 - 0.13 10*3/uL 02/14/2025 2:19 PM EDT [facility] Blood Structure of peripheral vein / Unknown Venipuncture / Unknown 02/14/2025 2:00 PM EDT 02/14/2025 2:10 PM EDT Tarah Hernandez LAB BLOOD ORDERABLES Final Resul t Performing Organization Address [facility] de Phone Number [facility] [address] [address], [place] [phone] * TSH Reflex Free T4 (02/14/2025 2:00 PM EDT) TSH 2.950 0.270 - 4.200 uIU/mL 02/14/2025 3:10 PM EDT [facility] Blood Structure of peripheral vein / Unknown Venipuncture / Unknown 02/14/2025 2:00 PM EDT 02/14/2025 2:11 PM EDT Tarah Totana LAB BLOOD ORDERABLES Final Resul t Performing Organization Address [facility] Co de Phone Number [facility] [address] [address], [place] [phone] documented in this encounter Visit Diagnoses Diagnosis Hyperlipidemia, unspecified hyperlipidemia type- Primary Routine general medical examination at a health care facility Essential (primary) hypertension Unspecified essential hypertension documented in this encounter Care Teams Outside Sales Professional Relationship Specialty Start Date End Date Tarah Silvestre 1960 [place] [address] PCP - General Internal Medicine 07/16/23 documented as of this encounter
--- NOTE | 2025-02-19 12:46 | A.OFFPC_ITS ---
Vital Signs 02/19/25 12:47 Height 5 ft 8 in Weight 232 lb BMI 35.3 BP 118/86 Blood Pressure Location Lt brachial Position Sitting Pulse 70 Pulse Source Pulse Oximeter Temp 98.5 F Temp Source Oral Pulse Oximetry (%) 99 Oxygen Delivery Method Room Air Intake Visit Reasons: PE Intake Note: Pt is here today for PE. Allergies No Known Allergies Allergy (Verified 02/19/25 12:48) Medication List - Last Reconciled 02/19/25 by Tarah Silvestre MD amlodipine 5 mg PO DAILY cholecalciferol (vitamin D3) PO omeprazole 20 mg PO DAILY pravastatin 40 mg PO BEDTIME telmisartan 40 mg PO DAILY Tobacco use date assessed: 02/19/25 Fall risk assessment: No Falls in past year Last assessed Fall Risk: 02/19/25 Dental Screening Dental Screen Date: 11/13/24 HPI PE HPI Details Pt presents for PE. 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 1. Little interest or pleasure in doing things: not at all 2. Feeling down, depressed, or hopeless: not at all 3. Trouble falling or staying asleep, or sleeping too much: not at all 4. Feeling tired or having little energy: not at all 5. Poor appetite or overeating: not at all 6. Feeling bad about yourself - or that you are a failure or have let yourself or your family down: not at all 7. Trouble concentrating on things, such as reading the newspaper or watching television: not at all 8. Moving or speaking so slowly that other people could have noticed. Or the opposite - being so fidgety or restless that you have been moving around a lot more than usual: not at all 9. Thoughts that you would be better off or of hurting yourself in some way: not at all Total score: 0 Depression Screening Interpretation: Negative Depression Screening Done: Yes Source: Developed by Drs. Emerson Montgomery, Loni Espinosa, Kannan French and colleagues, with an educational jennifer from [employer]. Thrive Questionnaire Date Thrive assessed: 11/12/24 I am a: Patient What is your living situation today?: I have a steady place to live Within the past 12 months, did the food you bought not last and you didn't have the money to get more?: Never true Within the past 12 months, did you worry whether your food would run out before you got money to buy more?: Never true Do you have trouble paying for medicines?: No Do you have trouble getting transportation to medical appointments?: No Do you have trouble paying your heating and electricity bill?: No Do you have trouble taking care of your child, family member or friend?: No Do you have trouble with day-to-day activities such as bathing, preparing meals, shopping, managing finances, etc.?: No Are you currently unemployed and looking for a job?: No Are you interested in more education?: Yes Please select the resources that you would like help with: None Currently or been in a relationship where the following occur: No concerns reported THRIVE Score: 0 TAINA-7 AMB Questionnaire TAINA-7 Date TAINA - 7 assessed: 11/13/24 Feeling nervous, anxious, or on edge: 0 = Not at all Not being able to stop or control worryin = Not at all Worrying too much about different things: 0 = Not at all Trouble relaxin = Not at all Being so restless that it is hard to sit still: 0 = Not at all Becoming easily annoyed or irritable: 0 = Not at all Feeling afraid as if something awful might happen: 0 = Not at all Total TAINA-7 score (0-4 normal; 5-9 mild; 10-14 moderate; 15-21 severe): 0 Source: Developed by Drs. Emerson Montgomery, Loni Espinosa, Kannan French and colleagues, with an educational jennifer from [employer]. Review of Systems Const All systems reviewed & are unremarkable except as noted in HPI and below Eyes Reports no additional complaints ENT Reports no additional complaints Card Reports no additional complaints Resp Reports no additional complaints GI Reports no additional complaints Reports no additional complaints Musc Reports no additional complaints Physical exam (Primary Care) Vital Signs: Last Vital Signs Temp 98.5 F 02/19/25 12:47 Pulse 70 02/19/25 12:47 BP 118/86 02/19/25 12:47 Pulse Ox 99 02/19/25 12:47 Oxygen Delivery Method Room Air 02/19/25 12:47 BMI result Body Mass Index 35.3 Tobacco/Smoking Status: Tobacco use Status Tobacco use date assessed 02/19/25 02/19/25 12:51 Patient Tobacco Use Status Never used Tobacco 02/19/25 12:51 e-Cigarette/Vaping Use Never Used 02/19/25 12:51 PHQ-9: PHQ-9 Score PHQ-9: Total score 0 02/19/25 13:20 Depression Screening Interpretation: Negative Thrive Assessment: Date of Thrive Assessment Date Thrive assessed 11/12/24 02/19/25 12:51 Currently or been in a relationship where the following occur: No concerns reported Const General: no acute distress HENMT Head: Yes normal to inspection Ears: TM's normal bilaterally Mouth: Normal oral and palatal mucosa present Throat: Yes posterior oropharynx normal Eyes General: appearance normal, both eyes and all related structures Neck Neck: Yes no lymphadenopathy and Yes supple Resp Effort & Inspection: normal respiratory effort Auscultation: clear to auscultation bilaterally Cardio Rhythm: regular rhythm Heart sounds: S1 normal heart sound present and S2 normal heart sound present GI Inspection: Yes normal to inspection Palpation (GI): Soft to palpation Percussion: Yes normal to percussion Auscultation: normal bowel sounds Coding Level of Care Code Est Pt Prev Care 40-64y(50[address]) Diagnoses HTN (hypertension) I10 Annual physical exam Z00.00 Hyperlipidemia E78.5 Assessment & Plan Assessment & Plan (1) HTN (hypertension): Code(s): I10 - Essential (primary) hypertension Category: Medical Plan: Continue current medications (2) Annual physical exam: Code(s): Z00.00 - Encounter for general adult medical examination without abnormal findings Category: Medical Plan: Well-balanced diet regular physical activity discussed with the patient. She is up-to-date with the mammogram and Pap smear by [facility] and she is due for colonosc opy next year (3) Hyperlipidemia: Code(s): E78.5 - Hyperlipidemia, unspecified Category: Medical Plan: Continue statin Orders: Orders TSH reflex Free T4 1 Year E55.9 - Vitamin D deficiency, unspecified, E78.5 - Hyperlipidemia, unspecified, I10 - Essential (primary) hypertension, Z00.00 - Encounter for general adult medical examination without abnormal findings Vitamin D 25-OH Total 1 Year E55.9 - Vitamin D deficiency, unspecified, E78.5 - Hyperlipidemia, unspecified, I10 - Essential (primary) hypertension, Z00.00 - Encounter for general adult medical examination without abnormal findings Hemoglobin A1c 1 Year R73.9 - Hyperglycemia, unspecified Comprehensive [employer] [place]. Panel Fast 1 Year E55.9 - Vitamin D deficiency, unspecified, E78.5 - Hyperlipidemia, unspecified, I10 - Essential (primary) hypertension, Z00.00 - Encounter for general adult medical examination without abnormal findings Complete Blood Count Auto Diff 1 Year E55.9 - Vitamin D deficiency, unspecified, E78.5 - Hyperlipidemia, unspecified, I10 - Essential (primary) hypertension, Z00.00 - Encounter for general adult medical examination without abnormal findings Lipid Panel 1 Year E55.9 - Vitamin D deficiency, unspecified, E78.5 - Hyperlipidemia, unspecified, I10 - Essential (primary) hypertension, Z00.00 - Encounter for general adult medical examination without abnormal findings UA w Microscopic 1 Year E55.9 - Vitamin D deficiency, unspecified, E78.5 - Hyperlipidemia, unspecified, I10 - Essential (primary) hypertension, Z00.00 - Encounter for general adult medical examination without abnormal findings Medications: Refilled amlodipine 5 mg PO DAILY 90 tabs 3RF omeprazole 20 mg PO DAILY 90 caps 3RF pravastatin 40 mg PO BEDTIME 90 tabs 3RF telmisartan 40 mg PO DAILY 90 tabs 3RF
[2025-02-19 12:47] VITALS: BP 118/86; PULSE 70; TEMP 36.9; O2SAT 99; BMI 35.3
--- OUTSIDE RECORDS SUMMARY | 2025-02-19 13:14 | XMS_ITS | Encounter Summary ---
Author Organization [facility] Address [address] [place] [address] Phone Care Team Providers Care Binder Operator Name Role Phone Shorty Díaz DO Primary Care Provider Moreno Walter MD Primary Care Provider Elsa Telles MD Primary Care Provider + Tarah Silvestre MD Primary Care Provider [phone] Encounter Details Date Type Department Care Team (Late st Contact Info) Description 02/26/2020 Procedure Pass [facility] MRI, [place] [address] [facility], [address]nd [place] [address] Social History Tobacco Use Types Packs/Day Years Used Date Smoking Tobacco: Never Smokeless Tobacco: Never Alcohol Use Standard Drinks/Week Comments Not Currently 0 (1 standard drink = 0.6 oz pur e alcohol) Comments No Sex and Gender Information Value Date Recorded Sex Assigned at Female 09/20/2023 8:52 AM EDT Legal Sex Female 7:44 PM EST Gender Identity Female 09/20/2023 8:52 AM EDT Sexual Orientation Straight 09/20/2023 8: 52 AM EDT documented as of this encounter Plan of Treatment Upcoming Encounters Date Type Department Care Team (Late st Contact Info) Description 12/04/2025 1:00 PM EDT Office Visit [facility] Cardiology [address], [address] [place] [address] Susan Hernandez MD [address] [place] [address] [id number] [place] [phone] [email or web address] documented as of this encounter Visit Diagnoses Not on filedocumented in this encounter Care Teams Binder Operator Relationship Specialty Start Date End Date Shorty Díaz DO [address] [place] [address] PCP - General Internal Medicine 01/09/20 05/25/20 Moreno Walter MD [address] [place] [address] PCP - General Family Medicine 05/26/20 09/08/21 Elsa Telles MD [address] [place] [address] PCP - General Family Medicine 09/09/21 04/20/23 Tarah Silvestre MD [address] [place] [address] [place] [address] PCP - General Internal Medicine 04/21/23 documented as of this encounter Additional Source Comments The information contained in this document represents components of the legal health record. It is not the complete legal health record.[facility]
--- OUTSIDE RECORDS SUMMARY | 2025-02-19 13:14 | XMS_ITS | Encounter Summary ---
Author Organization [facility] Address [address] [place] [address] Phone Care Team Providers Care Green Marketing Analyst Name Role Phone Moreno Walter MD Primary Care Provider [phone] Elsa Telles MD Primary Care Provider + Tarah Silvestre MD Primary Care Provider [phone] Encounter Details Date Type Department Care Team (Late st Contact Info) Description 06/04/2020 Procedure Pass [facility] - MRI [address] [facility], [address]th [place] [address] Social History Tobacco Use Types Packs/Day Years [...] Description 12/04/2025 1:00 PM EDT Office Visit [facility] [address] [place] [address], [address] [place] [id number] Susan Hernandez MD [address] [place] [address] [id number] [address] [place] [phone] [email or web address] documented as of this encounter Visit Diagnoses Not on filedocumented in this encounter Care Teams Green Marketing Analyst Relationship Specialty Start Date End Date Moreno Walter MD [address] [place] [id number] PCP - General Family Medicine 05/26/20 09/08/21 Elsa Telles MD [address] [place] [address] PCP - General Family Medicine 09/09/21 04/20/23 Tarah Silvestre MD [facility] [address] PCP - General Internal Medicine 04/21/23 documented as of this encounter Additional Source Comments The information contained in this document represents components of the legal health record. It is not the complete legal health record.[facility]
--- OUTSIDE RECORDS SUMMARY | 2025-02-19 13:14 | XMS_ITS | Encounter Summary ---
Author Organization [facility] Address [address] [place] [address] [place] [id number] Phone Care Team Providers Care Hot Room Attendant Name Role Phone Moreno Walter MD Primary Care Provider Elsa Telles MD Primary Care Provider + Tarah Silvestre MD Primary Care Provider [phone] Encounter Details Date Type Department Care Team (Late st Contact Info) Description 07/15/[address], [facility] [place] [address] [facility], [address] [place], [place] [id number] Social History Tobacco Use Types Packs/Day Years [...] Description 12/04/2025 1:00 PM EDT Office Visit [facility] [address], [address] [place], [place] [id number] Susan Hernandez MD [address] [place] [address] [id number] [address] [place] [phone] [email or web address] documented as of this encounter Visit Diagnoses Not on filedocumented in this encounter Care Teams Hot Room Attendant Relationship Specialty Start Date End Date Moreno Walter MD [address] [place] [address] PCP - General Family Medicine 05/26/20 09/08/21 Elsa Telles MD [address] [place] [address] PCP - General Family Medicine 09/09/21 04/20/23 Tarah Silvestre MD [facility] [place] [address] PCP - General Internal Medicine 04/21/23 documented as of this encounter Additional Source Comments The information contained in this document represents components of the legal health record. It is not the complete legal health record.[facility]
--- OUTSIDE RECORDS SUMMARY | 2025-02-19 13:14 | XMS_ITS | Encounter Summary ---
Author Organization [facility] Address [address] [place] [address] Phone Care Team Providers Care Industrial Hygiene Technician Name Role Phone Shorty Díaz DO Primary Care Provider [phone] Moreno Walter MD Primary Care Provider Elsa Telles MD Primary Care Provider + Tarah Silvestre MD Primary Care Provider [phone] Reason for Referral * MRI/CAT Scan - Closed Specialty Diagnoses / Procedures Referred By Alejandro reid Referred To Contact Radiology Diagnoses Adrenal nodule Procedures CT Abdomen/Pelvis CHG CT SCAN,ABDOMENT AND PELVIS,W/O CONTRAST Shorty Díaz DO Phone: tel: fax: Referral ID Status Reason Start Date Expiration Date Visits Re quested Visits Authorized [id number] Closed 04/23/2020 10/20/2020 1 1 Encounter Details Date Type Department Care Team (Late st Contact Info) Description 04/23/2020 Ancillary Orders [facility] Central Scheduling [address] [place], [place] [id number] Shorty Díaz DO [address] [place] [address] Adrenal nodule Social History Tobacco Use Types Packs/Day Years [...] Description 12/04/2025 1:00 PM EDT Office Visit [facility] [place] [address], [address] [place] [address] Susan Hernandez MD [address] [place], [place] [address] [address] [place] [phone] [email or web address] documented as of this encounter Results * CT ABDOMEN/PELVIS WITH AND WITHOUT CONTRAST (05/28/2020 3:25 PM EST) Anatomical Region Laterality Modality Abdomen, Pelvis Computed Tomogra phy 05/29/2020 12:2 1 PM EST Impressions 05/29/2020 12:36 PM EST Left adrenal gland 21 mm nodule demonstrates imaging features compatible with adrenal adenoma. Narrative 05/29/2020 12:36 PM EST PROCEDURE: CT ABDOMEN/PELVIS WITH AND WITHOUT CONTRAST TECHNIQUE: Diagnostic CT of the abdomen and pelvis WITH AND WITHOUT intravenous contrast. COMPARISON: None available at this institution. FINDINGS: LOWER THORAX: Minimal atelectasis. Left atrial enlargement. HEPATOBILIARY: No suspicious hepatic lesions. Multiple liver cysts. No biliary ductal dilatation. SPLEEN: No splenomegaly. PANCREAS: No focal masses or ductal dilatation. ADRENALS: Left adrenal gland 21 mm nodule measures 15 Hounsfield units on precontrast images, 69 Hounsfield units on postcontrast images, and 30 Hounsfield units on 15 minute delay images. Absolute washout is 72% and relative washout is 57% consistent with adrenal adenoma. No right adrenal gland nodule. KIDNEYS/URETERS: No hydronephrosis, stones, or contour deforming mass lesion. PELVIC ORGANS/BLADDER: Unremarkable. PERITONEUM / RETROPERITONEUM: No free air or fluid. LYMPH NODES: No lymphadenopathy. VESSELS: Unremarkable. GI TRACT: No bowel distention or wall thickening. Normal caliber appendix. BONES AND SOFT TISSUES: Fat-containing umbilical hernia with 2 cm neck. Osteopenia. No aggressive osseous lesion. Procedure Note Keon Holland MD - 05/29/2020 PROCEDURE: CT ABDOMEN/PELVIS WITH AND WITHOUT CONTRAST TECHNIQUE: Diagnostic CT of the abdomen and pelvis WITH AND WITHOUT intravenouscontrast. COMPARISON: None available at this institution. FINDINGS: LOWER THORAX: Minimal atelectasis. Left atrial enlargement. HEPATOBILIARY: No suspicious hepatic lesions. Multiple liver cysts. Nobiliary ductal dilatation. SPLEEN: No splenomegaly. PANCREAS: No focal masses or ductal dilatation. ADRENALS: Left adrenal gland 21 mm nodule measures 15 Hounsfield units onprecontrast images, 69 Hounsfield units on postcontrast images, and 30Hounsfield units on 15 minute delay images. Absolute washout is 72% andrelative washout is 57% consistent with adrenal adenoma. No right adrenal gland nodule. KIDNEYS/URETERS: No hydronephrosis, stones, or contour deforming masslesion. PELVIC ORGANS/BLADDER: Unremarkable. PERITONEUM / RETROPERITONEUM: No free air or fluid. LYMPH NODES: No lymphadenopathy. VESSELS: Unremarkable. GI TRACT: No bowel distention or wall thickening. Normal caliberappendix. BONES AND SOFT TISSUES: Fat-containing umbilical hernia with 2 cm neck.Osteopenia. No aggressive osseous lesion. IMPRESSION: Left adrenal gland 21 mm nodule demonstrates imaging features compatiblewith adrenal adenoma. Shorty Díaz DO IMG CT ABD/PELVIS Final Resul t documented in this encounter Visit Diagnoses Diagnosis Adrenal nodule Benign neoplasm of adrenal gland Adrenal nodule Benign neoplasm of adrenal gland documented in this encounter Care Teams Industrial Hygiene Technician Relationship Specialty Start Date End Date Shorty Díaz DO [address] [place] [id number] PCP - General Internal Medicine 01/09/20 05/25/20 Moreno Walter MD [address] [place] [address] PCP - General Family Medicine 05/26/20 09/08/21 Elsa Telles MD [address] [place] [address] PCP - General Family Medicine 09/09/21 04/20/23 Tarah Silvestre MD [address] [place] [address] [place] [address] PCP - General Internal Medicine 04/21/23 documented as of this encounter Additional Source Comments The information contained in this document represents components of the legal health record. It is not the complete legal health record.[facility]
--- OUTSIDE RECORDS SUMMARY | 2025-02-19 13:14 | XMS_ITS | Referral Summary ---
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 Social History Tobacco Use Types Packs/Day Years Used Date Smoking Tobacco: Never Assessed Comments:Smoking History:Nev er smoker Comments Unknown Sex and Gender Information Value Date Recorded Sex Assigned at Not on file Legal Sex Female 8:19 PM EDT Gender Identity Not on file Sexual Orientation Not on file Last Filed Vital Signs Vital Sign Reading Time Taken Comments Blood Pressure 160/102 04/05/2013 10:44 AM EST Pulse 66 04/05/2013 10:44 AM EST Temperature - - Respiratory Rate - - Oxygen Saturation - - Inhaled Oxygen Concentration - - Weight 86.3 kg (190 lb 4.1 oz) 04/05/2013 10:44 AM EST Height 172 cm (5' 7.72 ) 04/05/2013 10:44 AM EST Body Mass Index 29.17 04/05/2013 10:44 AM EST Plan of Treatment Not on file Procedures Procedure Name Priority Date/Time Associated Diagnosis Comments HEMOGLOBIN A1C Routine 04/05/2013 11:45 AM EST from Last 3 Months or Most Recently Relevant to Health Maintenance Results * Hemoglobin a1c (04/05/2013 11:45 AM EST) Hemoglobin A1C 5.3 4.0 - 6.0 % 3 2:41 PM EST SUNQUEST 04/05/2013 11:4 5 AM EST 04/05/2013 11:50 AM EST us Obey Turcios MD LAB BLOOD ORDERABLES Final Re sult [facility] CLIA [id number] [address] [place] [address], from Last 3 Months or Most Recently Relevant to Health Maintenance
--- OUTSIDE RECORDS SUMMARY | 2025-02-19 13:14 | XMS_ITS | Clinical Summary ---
Author Organization [facility] Address [address] [place] [address] Care Team Providers Care Water Supply Engineer Name Role Phone Tarah Silvestre Primary Care Provider [phone] Allergies Active Allergy Reactions Criticality Noted Date Comments Lisinopril Cough 01/15/2025 Medications fluticasone propionate (FLONASE) 50 mcg/actuation nasal spray INSTIL 2 SPRAYS IN EACH NOSTRIL EVERY DAY NEEDED FOR CONGESTION 16 mL 2 1 Active losartan (COZAAR) 25 mg tablet TAKE 2 TABLETS BY MOUTH EVERY DAY 180 tablet 3 2 Active omeprazole (PriLOSEC) 20 mg capsule Take 1 capsule by mouth once a day. 4 Active therapeutic multivitamin (THERAGRAN) tablet Take by mouth. Activ e biotin 10 mg tablet Take by mouth. Activ e betamethasone valerate (VALISONE) 0.1 % ointment APPLY A THIN LAYER TO THE AFFECTED AREA(S) BY TOPICAL ROUTE ONCE DAILY 4 Active azelastine (ASTELIN) 137 mcg (0.1 %) nasal spray 2 SPRAYS BY NASAL ROUTE 2 (TWO) TIMES A DAY. USE IN EACH NOSTRIL DIRECTED 4 Active amLODIPine (NORVASC) 5 mg tablet Take 1 tablet by mouth once a day. 1 Active neomycin-polymyxi n B-dexamethasone (MAXITROL) 3.5mg/mL-10,000 unit/mL-0.1 % ophthalmic suspension INSERT 1 DROP INTO LEFT EYE FOUR TIMES DAILY FOR 7 DAYS. 4 Active pravastatin (PRAVACHOL) 40 mg tablet Take 1 tablet by mouth at bed time. 4 Active sulfacetamide sodium, acne, 10 % suspension Apply topically to the affected area. Active telmisartan (MICARDIS) 40 mg tablet Take 1 tablet by mouth once a day. 2 Active omeprazole (PriLOSEC) 20 mg capsule TAKE ONE 20 MG CAPSULE ORALLY DAILY Active cholecalciferol (VITAMIN D3) 2,000 unit tablet Take 1,000 Units by mouth daily. Active Encounters Date Type Department Care Team Description 02/14/2025 3:30 PM EDT Lab [facility] Site Department [address] [place] [address] Hyperlipidemia, unspecified hyperlipidemia type (Primary Dx); Routine general medical examination at a health care facility; Essential (primary) hypertension 01/31/2025 11:00 AM EDT Office Visit [facility] [address] [place] [phone] Master Automotive Glass Technician: Vanessa Heart MD Visit for suture removal (Primary Dx) 01/17/2025 Telephone [facility] [address] [place] [phone] Master Automotive Glass Technician: Abby Tomas MD 01/16/2025 8:15 AM EDT Procedure visit [facility] [address] [place] [phone] Master Automotive Glass Technician: Vanessa Heart MD Basal cell carcinoma (BCC) of chest [C44.519] (Primary Dx) from Last 3 Months Social History Tobacco Use Types Packs/Day Years Used Date Smoking Tobacco: Never Assessed Comments No Sex and Gender Information Value Date Recorded Sex Assigned at Female 03/09/2024 8:27 AM EDT Legal Sex Female 3:59 PM EDT Gender Identity Not on file Sexual Orientation Not on file Last Filed Vital Signs Vital Sign Reading Time Taken Comments Blood Pressure 148/96 01/16/2025 8:20 AM EDT Pulse 73 01/16/2025 8:20 AM EDT Temperature - - Respiratory Rate - - Oxygen Saturation - - Inhaled Oxygen Concentration - - Weight 90.7 kg (200 lb) 03/09/2024 12:33 PM EDT Height 172.7 cm (5' 8 ) 03/09/2024 12:33 PM EDT Body Mass Index 30.41 03/09/2024 12:33 PM EDT Plan of Treatment Upcoming Encounters Date Type Department Care Team (Late st Contact Info) Description 03/11/2025 2:40 PM EDT Appointment [facility] [address] [place] [phone] Health Maintenance Due Date Last Done Comments Cologuard 1960 Colon Cancer Screening 1960 Colonoscopy 1960 FOBT / Fit Test 1960 HIV Screening 1960 HPV and Pap Smear 1961 Hepatitis C Screening 1960 Sigmoidoscopy 1960 Cervical Cancer Screening 02/25/2004 Pap Smear 02/25/2004 02/24/2001, 12/21, 11/13/1999 Pneumococcal Vaccine: 50+ Years (1 of 1 - PCV) 2011 Zoster Vaccines (2 of 3) 07/06/2021 05/11/2021 Alcohol/Substance Use Screening 05/23/2024 Depression Screening and Follow-Up 05/23/2024 Social Drivers of Health Annual Screening 05/23/2024 COVID-19 Vaccine ( - season) 2025 03/10/2021, 09/05/2020, 08/15/2020 Influenza Vaccine (#1) 2025 , 02/22/2020, 03/23/2019, Additional history exists DTaP,Tdap,and Td Vaccines (2 - Td or Tdap) 10/12/2025 10/13/2015 Basic Metabolic Panel 02/14/2026 02/14/2025 , 01/23/2025, 04/16/2024, Additional history exists Mammogram 03/09/2026 03/09/2024, 02/20, 02/15/2022, Additional history exists Diabetes Screening 02/15/2028 02/14/2025, 0 01/23/2025, 04/16/2024, Additional history exists RSV Vaccine (60+ years old and patients) (1 - 1-dose 75+ series) 01/13/2036 Hepatitis B Vaccines Aged Out No long er eligible based on patient's age to complete this topic Procedures * Due to [place] Edustation.me law, this organization might not be sharing negative HIV tests. Procedure Name Priority Date/Time Associated Diagnosis Comments COMPREHENSIVE METABOLIC PANEL Routine 02/14/2025 2:00 PM [...] a health care facility Essential (primary) hypertension TSH REFLEX FREE T4 Routine 02/14/2025 2: 00 PM EDT Hyperlipidemia, unspecified hyperlipidemia type Routine general medical examination at a health care facility Essential (primary) hypertension MOHS SURGERY Routine 01/16/2025 Basal cell carcinoma (BCC) of chest [C44.519] CASPER BILATERAL SCREENING DIGITAL MAMMOGRAM WITH OUSMANE Routine 03/09/2024 12:44 PM EDT Screening mammogram for breast cancer PAP NO HPV, CONVERSION Routine 02/24/2001 10:56 AM EDT from Last 3 Months or Most Recently Relevant to Health Maintenance Results * Due to [place] Edustation.me law, this organization might not be sharing negative HIV tests. * TSH Reflex Free T4 (02/14/2025 2:00 PM EDT) Pathologist [facility] TSH 2.950 0.270 - 4.200 uIU/mL 02/14/2025 3:10 PM EDT [facility] Blood Structure of peripheral vein / Unknown Venipuncture / Unknown 02/14/2025 2:00 PM EDT 02/14/2025 2:11 PM EDT Tarahhannah Hernandez LAB BLOOD ORDERABLES Final Resul t [facility] [address] [place] [address] [address] [place] [address], [place] [phone] * (ABNORMAL) CBC Auto Differential (02/14/2025 2:00 PM EDT) [facility] WBC 3.2(L) 4.8 - 10.8 10*3/uL 02/14/2025 2:19 PM EDT [facility] RBC 4.35 4.20 - 5.40 10*6/uL 02/14/2025 2:19 PM EDT [facility] Hemoglobin 12.6 11.7 - 15.5 g/dL 02/14/2025 2:19 PM EDT [facility] Hematocrit 37.1 35.7 - 45.8 % 02/14/2025 2:19 PM EDT [facility] MCV 85.3 81.0 - 99.0 fL 02/14/2025 2:19 PM EDT [facility] MCH 29.0 26.0 - 34.0 pg 02/14/2025 2:19 PM EDT [facility] MCHC 34.0 31.0 - 36.0 g/dL 02/14/2025 2:19 PM EDT [facility] RDW 13.5 12.0 - 15.0 % 02/14/2025 2:19 PM EDT [facility] RDW Standard Deviation 42.2 36.4 - 46.3 fL 02/14/2025 2:19 PM EDT [facility] Platelets 274 140 - 440 10*3/uL 02/14/2025 2:19 PM EDT [facility] MPV 9.0(L) 9.4 - 12.3 fL 02/14/2025 2:19 PM EDT [facility] Neutrophil % 40.2(L) 50.0 - 75.0 % 02/14/2025 2:19 PM EDT [facility] Immature Grans % 0.3 0.0 - 0.9 % 02/14/2025 2:19 PM EDT [facility] Lymphocyte % 47.8(H) 20.0 - 44.0 % 02/14/2025 2:19 PM EDT [facility] Monocyte % 7.9 0.0 - 14.0 % 02/14/2025 2:19 PM EDT [facility] Eosinophil % 2.5 0.0 - 5.0 % 02/14/2025 2:19 PM EDT [facility] Basophil % 1.3 0.0 - 2.0 % 02/14/2025 2:19 PM EDT [facility] Neutrophil # 1.27(L) 1.80 - 7.70 10*3/uL 02/14/2025 2:19 PM EDT [facility] Immature Grans # <0.03 0.00 - 0.03 10*3/uL 02/14/2025 2:19 PM EDT [facility] Lymphocyte # 1.50 1.00 - 4.75 10*3/uL 02/14/2025 2:19 PM EDT [facility] Monocyte # 0.30 0.00 - 0.60 10*3/uL 02/14/2025 2:19 PM EDT [facility] Eosinophil # 0.10 0.00 - 0.80 10*3/uL 02/14/2025 2:19 PM EDT [facility] Basophil # <0.03 0.00 - 0.20 10*3/uL 02/14/2025 2:19 PM EDT [facility] nRBC % 0.0 0 - 0 /100 WBCs 02/14/2025 2:19 PM EDT [facility] nRBC # <0.01 0.00 - 0.13 10*3/uL 02/14/2025 2:19 PM EDT [facility] Blood Structure of peripheral vein / Unknown Venipuncture / Unknown 02/14/2025 2:00 PM EDT 02/14/2025 2:10 PM EDT [facility] BLOOD ORDERABLES Final Resul t Performing Organization Address City/[facility]/ZIP Co de Phone Number [facility] [address] [address], [place] [phone] * Vitamin D, 25-Hydroxy, Total, Immunoassay (02/14/2025 2:00 PM EDT) Vitamin D 25-OH 35.80 30.00 - 80.00 ng/mL 02/14/2025 2:55 PM EDT [facility] Blood Structure of peripheral vein / Unknown Venipuncture / Unknown 02/14/2025 2:00 PM EDT 02/14/2025 2:10 PM EDT [facility] BLOOD ORDERABLES Final Resul t Performing Organization Address [facility]/ZIP Co de Phone Number [facility] [address] [address], [place] [phone] * Lipid panel (02/14/2025 2:00 PM EDT) Cholesterol 194 mg/dL 02/14/2025 3:10 PM EDT [facility] Comment: DESIRABLE: <200 mg/dL BORDERLINE HIGH: 200-239 mg/dL HIGH: >239 mg/dL Triglycerides 76 mg/dL 02/14/2025 3:10 PM EDT [facility] Comment: NORMAL: <150 mg/dL BORDERLINE HIGH: 150-199 mg/dL HIGH: 200-499 mg/dL VERY HIGH >499 mg/dL Cholesterol, HDL 62 mg/dL 02/15/20 3:10 PM EDT [facility] Comment: DESIRABLE: >60 mg/dL BORDERLINE: 40-59 mg/dL UNDESIRABLE: <40 mg/dL LDL Cholesterol 117 mg/dL 3:10 PM EDT [facility] Comment: OPTIMAL: <100 mg/dL NEAR OPTIMAL: <130 mg/dL BORDERLINE HIGH: 130-159 mg/dL HIGH: 160-189 mg/dL VERY HIGH: >189 mg/dL LDL-C is calculated using the Friedewald calculation. VLDL 15.2 mg/dL 02/14/2025 3:10 PM EDT [facility] Cholesterol/HDL Ratio 3.1 02/14/2025 3:10 PM EDT [facility] Blood Structure of peripheral vein / Unknown Venipuncture / Unknown 02/14/2025 2:00 PM EDT 02/14/2025 2:11 PM EDT Tarah Silvestre LAB BLOOD ORDERABLES Final Resul t [facility] [address] [place] [address] [address] [place] [address], [place] [phone] * (ABNORMAL) Comprehensive Metabolic Panel (02/14/2025 2:00 PM EDT) NA 140 136 - 145 mmol/L 02/14/2025 3:10 PM EDT [facility] K 4.2 3.5 - 5.1 mmol/L 02/14/2025 3:10 PM EDT [facility] Cl 102 98 - 109 mmol/L 02/14/2025 3:10 PM EDT [facility] CO2 24 22 - 32 mmol/L 02/14/2025 3:10 PM EDT [facility] Anion Gap 18 >=0 02/14/2025 3:10 PM EDT [facility] Glucose 102(H) 60 - 99 mg/dL 02/14/2025 3:10 PM EDT [facility] Creatinine 0.99 0.50 - 1.12 mg/dL 02/14/2025 3:10 PM EDT [facility] Calcium 9.0 8.4 - 10.4 mg/dL 02/14/2025 3:10 PM EDT [facility] Total Protein 7.7 6.6 - 8.7 g/dL 02/14/2025 3:10 PM EDT [facility] Albumin 4.4 3.5 - 5.0 g/dL 02/14/2025 3:10 PM EDT [facility] Bilirubin, Total 0.4 0.2 - 1.2 mg/dL 02/14/2025 3:10 PM EDT [facility] Alkaline Phosphatase 74 40 - 129 U/L 02/14/2025 3:10 PM EDT [facility] AST 24 0 - 33 U/L 02/14/2025 3:10 PM EDT [facility] ALT 18 <=33 U/L 02/14/2025 3:10 PM EDT [facility] BUN 16 8 - 23 mg/dL 02/14/2025 3:10 PM EDT [facility] eGFR 64 >=60 mL/min/1. 73m2 02/14/2025 3:10 PM EDT [facility] Comment:The estimated glomer ular filtration rate (eGFR) is calculated using a new formula developed by the NKF-ASN task force to eliminate race-based correction factors. The new formula uses serum/plasma creatinine, age, and gender to determine eGFR. A value below 60mls/min might indicate kidney disease and will be flagged. For additional information, see Xi et al, Am J Kidney Dis. 2021;79(2):268- 288, A Unifying Approach for GFR estimation: Recommendations of the NKF-ASN Task Force on Reassessing the Inclusion of Race in Diagnosing Kidney Disease . Globulin, Total 3.3 2.1 - 4.2 g/dL 02/14/2025 3:10 PM EDT [facility] A/G Ratio 1.3(L) 1.5 - 3.0 02/14/2025 3:10 PM EDT [facility] Blood Structure of peripheral vein / Unknown Venipuncture / Unknown 02/14/2025 2:00 PM EDT 02/14/2025 2:11 PM EDT Tarah Silvestre LAB BLOOD ORDERABLES Final Resul t [facility] [address] [place] [address], * MOHS Surgery (01/16/2025) Narrative [facility] - 01/16/2025 Yancy Oviedo [place] 01/16/2025 3:41 PM MOHS Surgery Date/Time: 01/16/2025 8:15 AM Performed by: Vanessa Stack MD Authorized by: Vanessa Stack MD Procedure (Free Text): BCC Left Medial Superior Chest Patient identity confirmed?: Name and with patient and Verbally Written consent obtained?: Yes Risks and benefits discussed?: Yes Consent given by?: Patient Patient states understanding of procedure being performed?: Yes Patient's understanding of procedure matches consent?: Yes Procedure consent matches procedure to be performed: Yes All relevant documents/tests are correctly identified, labeled, and matched to patient: Yes Relevant tests/ Imaging studies available/reviewed: Yes Correct site marked: Yes Required blood products, implants, devices and special equipment available: N/A Immediately prior to the procedure a time out was called: Yes An attending physician was present for the procedure OR the procedure was performed by an Advanced Practice Provider (Residents: A yes indicates you are attesting to the attending being present for the dumont portions of the procedure. Checking yes when the attending was not present may result in fraudulent charges being submitted): Yes Attending Provider:: Vanessa Stack Fellow: Pat Nurse: Marie MOA: Laura Oviedo Norma R Patient Fasting?: Yes Allergies: Lisinopril Implant Devices: Other (see comment) Other (comment): No Implanted Devices Blood Thinners?: No Joint Replacement?: No Antibiotics Before the Dentist?: No Cautery set up:: [place] [facility] Grounding pad site:: Left Arm Surgical Prep: Chlorhexidine 12 mL lidocaine-epinephrine (PF) 1%-1:220,000 (PF) 1%-1:220,000 Patient Condition: Stable Wound Treated With:: Vaseline Bandages to remain in place for:: 48 hours Follow up required:: Two Weeks Discharge: Patient tolerated the procedure well with no immediate complications, Pressure dressing applied, Wound care reviewed verbally and in writing and Patient discharged in good condition Procedure Note Yancy Oviedo MA - 01/16/2025 8:15 AM EDT MOHS Surgery Date/Time: 01/16/2025 8:15 AM Performed by: Vanessa Stack MD Authorized by: Vanessa Stack MD Procedure (Free Text): BCC Left Medial Superior Chest Patient identity confirmed?: Name and with patient and Verbally Written consent obtained?: Yes Risks and benefits discussed?: Yes Consent given by?: Patient Patient states understanding of procedure being performed?: Yes Patient's understanding of procedure matches consent?: Yes Procedure consent matches procedure to be performed: Yes All relevant documents/tests are correctly identified, labeled, andmatched to patient: Yes Relevant tests/ Imaging studies available/reviewed: Yes Correct site marked: Yes Required blood products, implants, devices and special equipmentavailable: N/A Immediately prior to the procedure a time out was called: Yes An attending physician was present for the procedure OR the procedure wasperformed by an Advanced Practice Provider (Residents: A yes indicates youare attesting to the attending being present for the dumont portions of theprocedure. Checking yes when the attending was not present may result infraudulent charges being submitted): Yes Attending Provider:: Vanessa Stack Fellow: Pat Nurse: Marie MOA: Laura Oviedo Norma R Patient Fasting?: Yes Allergies: Lisinopril Implant Devices: Other (see comment) Other (comment): No Implanted Devices Blood Thinners?: No Joint Replacement?: No Antibiotics Before the Dentist?: No Cautery set up:: [facility] Grounding pad site:: Left Arm Surgical Prep: Chlorhexidine 12 mL lidocaine-epinephrine (PF) 1%-1:220,000 (PF) 1%-1:220,000 Patient Condition: Stable Wound Treated With:: Vaseline Bandages to remain in place for:: 48 hours Follow up required:: Two Weeks Discharge: Patient tolerated the procedure well with no immediatecomplications, Pressure dressing applied, Wound care reviewed verbally andin writing and Patient discharged in good condition us Vanessa Stack MD DERM PROCEDURE ORDERABLES Final Result [facility] * [facility] Bilateral Screening Digital Mammogram With Ousmane (03/09/2024 12:44 PM EDT) Anatomical Region Laterality Modality Breast Bilateral Mammography Narrative 03/17/2024 11:11 AM EDT Exam Date: 03/09/[address] [address] EXAMINATION CASPER Bilateral Screening Digital Mammogram With Ousmane. INDICATION Diandra Rachel is a 64 y.o. female and is seen for: CASPER Bilateral Screening Digital Mammogram With Ousmane. CC and MLO views were obtained. FDA approved [employer] AI (artificial intelligence) software and R2 CAD were used as a concurrent reading aid in the interpretation of this study. COMPARISON Compared to: 03/08/2023 [facility] Bilateral Screening Digital Mammogram With Ousmane, 02/15/2022 [facility] Screening Digital Mammogram, 02/09/2021 [facility] Screening Digital Mammogram, 02/04/2020 [facility] Screening Digital [...] breast ultrasound (ABUS) depending on risk factors. [email or web address] Breast MRI is available at many [facility] MRI locations. To schedule, enter an MRI order into [facility] (MRI BREAST BILAT SCREENING W WO CONTRAST), call [phone] or [phone], or fax [phone]. ABUS is available at two [facility] sites. To schedule, enter an ABUS order into [facility] (ABUS), contact [facility] Scheduling (call [phone] or fax order [phone]), or contact [facility] Central Scheduling (call [phone] or fax order [phone]). If this radiology report contains a blank impression section, it is an incomplete radiology report. Please contact the interpreting radiologist or applicable radiology division as soon as possible to obtain the completed interpretation. Malorie Tavarez MD Tarah Silvestre [facility] BI PROCEDURES Final Result * Pap no HPV (02/24/2001 10:56 AM EDT) Path Procedure TPG ([id number]) 1 Edited by: [id number] LB-REINIER [facility] Specimen Labeled As: 1 CERVICAL/ENDOCER VICAL CYTO MATERIAL - Edited by: [id number] LB-RE [facility] Diagnosis THINPREP PAP TEST ADEQUACY: Satisfactory but limited by no endocervical component GENERAL DIAGNOSTIC CATEGORY: Within NORMAL limits Edited by: [id number] JAN [facility] Gynecologic Clinical Data Specimen source:, THINPREP (ENDOCERVICAL ONLY) [facility] Gynecologic Clinical Data First date of LMP:, 02/09/01 [facility] Gynecologic Clinical Data Gynecologic findings:, PREV.ABN.PAP. [facility] Marker 1 QPG,QC ARENAS [facility] Marker 2 RGTAI [facility] - [facility] Marker 3 TP,THIN PREP [facility] Marker 4 WNL,Within Normal limits [facility] Cc Results To MAUREEN NESBITT [facility] Signature REPORT SIGNED: TAI JOHN 03/08/01 [facility] Sign Out Audit APRILTAI BROWN [id number] FINAL [place] [id number] [facility] Cytology / Unknown 1 10:56 AM EDT 02/28/2001 10:56 AM EDT us Historical Conversion Provider LAB HISTORICAL RE SULTS Final Result [facility] [address] [place] [address], from Last 3 Months or Most Recently Relevant to Health Maintenance Insurance [employer] Care Teams Water Supply Engineer Relationship Specialty Start Date End Date Tarah Silvestre 1960 [place] [address] PCP - General Internal Medicine 07/16/23
--- OUTSIDE RECORDS SUMMARY | 2025-02-19 13:14 | XMS_ITS | Clinical Summary ---
Author Organization [facility] Address [address] [place] [phone] Phone Care Team Providers Care On Site Nurse Name Role Phone Tarah Silvestre MD Primary Care Provider [phone] Allergies No known active allergies Medications therapeutic multivitamin tablet Take 1 tablet by mouth daily. Active acetaminophen (TYLENOL) 325 mg tablet Take 2 tablets (650 mg total) by mouth every 6 (six) hours as needed for mild pain or fever. 0 0 Active Additional Information Patient not taking.Reported on 08/30/2024 senna (SENOKOT) 8.6 mg tablet Take 2 tablets by mouth nightly at bedtime. 0 Active omeprazole (PRILOSEC) 20 MG capsule Take 1 capsule (20 mg total) by mouth daily. 10 capsule 0 Active white petrolatum-reexaminer al oiL (REFRESH P.M.) 57.3-42.5 % Oint Place 1 application into each eye nightly at bedtime as needed. 1 Tube 1 0 Active Additional Information Patient not taking.Reported on 08/30/2024 GENTEAL TEARS MILD 0.1-0.3 % PLACE 1 DROP INTO EACH EYE 3 (THREE) TIMES A DAY NEEDED.DISCON TINUED ITEM 15 mL 0 Active amLODIPine (NORVASC) 5 MG tablet Take 5 mg by mouth daily. Active pravastatin (PRAVACHOL) 40 MG tablet Take 40 mg by mouth daily. Active telmisartan (MICARDIS) 40 MG tablet Take 40 mg by mouth daily. Active cholecalciferol (VITAMIN D3) 2,000 unit tablet Take 1,000 Units by mouth daily. 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, [address] [place] [address] Caren Saha RN 01/29/2025 1:00 PM EDT Procedure visit [facility] 1 [place] [address] Encounter for cosmetic procedure (Primary Dx) 01/24/2025 Telephone [facility] Cardiology [facility] [address] [facility], [address] [place] [address] Caren Saha RN 01/23/2025 12:42 PM EDT - 01/23/2025 11:59 PM EDT Hospital Encounter [facility] [address] [place] [address] Discharge Disposition: Home or Self Care 01/23/2025 Orders Only [facility] [address] [place] [address] Susan Hernandez MD Essential hypertension (Primary Dx) 01/14/2025 Telephone [facility] Cardiology [facility] [address] [facility], [address] [address] Caren Saha RN 01/01/2025 1:00 PM EDT Procedure visit [facility] 1 [place] [address] Encounter for cosmetic procedure (Primary Dx) 12/29/2024 9:27 AM EDT - 12/29/2024 11:59 PM EDT Hospital Encounter [place] [address] [facility], [address] [place] [address] Susan Hernandez MD Discharge Disposition: Home or Self Care 12/07/2024 1:00 PM EDT Telemedicine - audio only [facility] Department of Neurosurgery [address] [place] [address] Sera Barclay PA-C Vestibular schwannoma (Primary Dx) 12/04/2024 10:00 AM EDT Office Visit [facility] Cardiology [facility] [address] [facility], [address] [place] [address] Susan Hernandez MD Palpitations (Primary Dx); Localized edema; Essential hypertension; Cardiac risk counseling; Obesity (BMI 30.0-34.9) 12/04/2024 Procedure Pass [facility] [address] [facility], [address] [place] [address] 12/01/2024 1:01 PM EDT - 12/01/2024 11:59 PM EDT Hospital Encounter MRI, [facility] - [address], [address] [place] [address] Bola Burgess MD Discharge Disposition: Home or Self Care 11/27/2024 1:00 PM EDT Procedure visit [facility] 1 [place] [address] Encounter for cosmetic procedure (Primary Dx) 09/11/2024 Procedure Pass MRI, [facility] - [address], [address] [place] [address] from Last 3 Months Immunizations Immunization Administration Dates Next Due Influenza Quadrivalent Preservative Free IM 06/2019 Family History Medical History Relation Comments Mitral valve insufficiency Father Relation Status Comments Father (Age 88) Mother Alive Social History Tobacco Use Types Packs/Day Years Used Date Smoking Tobacco: Never Smokeless Tobacco: Never Tobacco Cessation:Counseling Given: Not Answered Alcohol Use Standard Drinks/Week Comments Not Currently 0 (1 standard drink = 0.6 oz pur e alcohol) Education Answer Date Recorded Are you interested in more education? Not on balta e 09/16/2022 Are you concerned about learning? Not on file 09/16/2022 No 09/16/2022 No 09/16/2022 Digital Access Answer Date Recorded No 10/18/2022 No 10/18/2022 Reliable internet access at home? Not on file 10/18/2022 Device with a working camera? Not on file Comments No Sex and Gender Information Value Date Recorded Sex Assigned at Female 09/20/2023 8:52 AM EDT Legal Sex Female 7:44 PM EST Gender Identity Female 09/20/2023 8:52 AM EDT Sexual Orientation Straight 09/20/2023 8: 52 AM EDT Last Filed Vital Signs Vital Sign Reading Time Taken Comments Blood Pressure 145/90 12/04/2024 10:09 AM EDT Pulse 67 12/04/2024 10:09 AM EDT Temperature 36.6 C (97.9 F) 08/30/2024 11:54 AM EDT Respiratory Rate 16 08/30/2024 11:54 AM EDT Oxygen Saturation 98% 08/30/2024 11:54 AM EDT Inhaled Oxygen Concentration - - Weight 104.3 kg (230 lb) 12/04/2024 10:09 AM EDT Height 172.7 cm (5' 7.99 ) 04/16/2020 1:04 PM ES T Body Mass Index 34.98 04/16/2020 1:04 PM EST Plan of Treatment Upcoming Encounters Date Type Department Care Team (Late st Contact Info) Description 12/04/2025 1:00 PM EDT Office Visit [facility] Cardiology [facility] [address] [place] [address], [address] [place], [place] [id number] Susan Hernandez MD [address] [place] [address] [address] [place] [address] [email or web address] Health Maintenance Due Date Last Done Comments Adult Td,Tdap Booster 1961 DEPRESSION SCREENING 1973 HEPATITIS C SCREENING 1979 HIV ONE-TIME SCREENING (18-65 YEARS) 1979 PAP SMEAR 1982 COLOGUARD 2006 COLONOSCOPY 2006 COLORECTAL CANCER SCREENING 2006 FIT TEST 2006 FOBT 2006 SIGMOIDOSCOPY 2006 VIRTUAL COLONOSCOPY 2006 PNEUMOCOCCAL VACCINES (50+ years) (1 of 1 - PCV) 2011 ZOSTER VACCINES (1 of 2) 2011 INFLUENZA VACCINE (#1) 2024 02/22/2020 COVID-19 VACCINE (1 - 2023- season) 2025 BLOOD PRESSURE 06/06/2025 12/04/2024 CREATININE LEVEL 01/23/2026 01/23/2025, 06/2019, 02/21/2020, Additional history exists POTASSIUM LEVEL 01/23/2026 01/23/2025, 06/2019, 02/21/2020, Additional history exists MAMMOGRAM 03/09/2026 03/09/2024, 02/20, 03/08/2023 SCREENING FOR DIABETES 01/24/2028 01/23/2025 LIPID PANEL 01/23/2030 01/23/2025, 03/24, 04/16/2024, Additional history exists RSV VACCINE (1 - 1-dose 75+ series) 01/13/2036 SMOKING STATUS SCREENING (Once After 26 Yrs) Completed 12/04/2024 HEPATITIS A VACCINES Aged Out No long er eligible based on patient's age to complete this topic HIB VACCINES Aged Out No longer eligi ble based on patient's age to complete this topic MENINGOCOCCAL VACCINES (ACWY) Aged Out No longer eligible based on patient's age to complete this topic MENINGOCOCCAL VACCINES (B) Aged Out N o longer eligible based on patient's age to complete this topic Medical Devices Implanted Type Area Staffing Associate Device Identifier Shelf Expiration Date Model / Serial / Lot Screw Bone 1.5x4mm Ti Self Drilling Matrixneuro Pk/5ea - [id number] Implanted:Qty: 12 on 02/19/2020 by Fidel Smith MD at [facility] NODATA Left: Cranial SYNTHES 04.503.10 4.05 / / Tissue Alloderm Rtu [id number] Medium 1.6 +/- 0.4mm - [id number] Implanted:Qty: 1 on 02/19/2020 by Fidel Smith MD at [facility] Left: Cranial ALLERGAN 08/20/2021 [id number] / / [id number] Cover [place] 24mm Hole Matrixneuro Titanium - [id number] Implanted:Qty: 1 on 02/19/2020 by Fidel Smith MD at [facility] Left: Cranial SYNTHES 04.503.02 4 / / Plate .3mmx12 4 Hole Cranial Matrixneuro Titanium Straight [place] Ultra Low Profile Thick - [id number] Implanted:Qty: 2 on 02/19/2020 by Fidel Smith MD at [facility] Left: Cranial SYNTHES 04.502.06 3 / / Procedures Procedure Name Priority Date/Time Associated Diagnosis Comments LIPID PANEL Routine 01/23/2025 12:50 PM EDT Essential hypertension BASIC METABOLIC PANEL Routine 01/23/2025 12:50 PM EDT Essential hypertension NT-PROBNP Routine 01/23/2025 12:50 PM EDT Localized edema TTE COMPREHENSIVE Routine 12/29/2024 10: 45 AM EDT Localized edema ECG 12-LEAD Routine 12/04/2024 10:02 AM EDT Palpitations MRI BRAIN (INTERNAL AUDITORY CANAL) WITH AND WITHOUT CONTRAST Routine 12/01/2024 2:13 PM EDT Vestibular schwannoma from Last 3 Months Results * NT-proBNP (01/23/2025 12:50 PM EDT) NT-PROBNP 164 0 - 900 pg/mL [facility] Comment: Reference Range: Age <50 years: 0-450 pg/ml Age 50-75 years: 0-900 pg/ml Age >75 years: 0-1800 pg/ml Among patients with dyspnea, NT-proBNP is highly sensitive for the detection of acute congestive heart failure. In addition, a NT-proBNP <300 pg/ml effectively rules out acute congestive heart failure, with 99% negative predictive value. Knowledge of each individual patient's NT-proBNP range may be more useful than using similar cut-points for every patient. Marked elevations in NT-proBNP levels may be observed in states other than left ventricular congestive heart failure, including: acute coronary syndromes, right heart strain/failure (including pulmonary embolism and cor pulmonae), critical illness, renal failure, atrial fibrillation, as well as advanced age. Falsely low NT-proBNP in congestive heart failure patients may be observed with increasing body-mass index. 01/23/2025 12:5 0 PM EDT 01/23/2025 1:01 PM EDT Susan Hernandez MD LAB BLOOD ORDERABLES Final Resul t Performing Organization Address City/[facility]/ZIP Co de Phone Number [facility] [address] [place] [address] * Lipid panel (01/23/2025 12:50 PM EDT) HDL 59 35 - 100 mg/dL [facility] CHOLESTEROL 185 <200 mg/dL [facility] TRIGLYCERIDES 96 40 - 150 mg/dL [facility] LDL 107 50 - 129 mg/dL [facility] CARDIAC RISK RATIO 3.1 0.0 - 5.[address] [facility] NON-HDL CHOLESTEROL 126 mg/dL [facility] Comment:NCEP ATP III guideli deisy suggest a non-HDL cholesterol goal 30 mg/dl higher than the patient-specific LDL goal. 01/23/2025 12:5 0 PM EDT 01/23/2025 1:01 PM EDT Susan Hernandez MD LAB BLOOD ORDERABLES Final Resul t Performing Organization Address City/[facility] Co de Phone Number [facility] [address] [place] [address] * (ABNORMAL) Basic metabolic panel (01/23/2025 12:50 PM EDT) SODIUM 141 135 - 145 mmol/L [facility] POTASSIUM 4.1 3.4 - 5.0 mmol/L [facility] CHLORIDE 103 98 - 108 mmol/L [facility] CO2 26 23 - 32 mmol/L [facility] BUN 14 8 - 25 mg/dL [facility] CREATININE 1.04(H) 0.50 - 1.00 mg/dL [facility] GLUCOSE 98 70 - 110 mg/dL [facility] CALCIUM 9.4 8.5 - 10.5 mg/dL [facility] EGFR 60 >59 mL/min/1.7 3m2 [facility] Comment:Estimated glomerular filtration rate calculated using the CKD-EPI refit equation. ANION GAP 12 3 - 17 mmol/L [facility] 01/23/2025 12:5 0 PM EDT 01/23/2025 1:01 PM EDT us Susan Hernandez MD LAB BLOOD ORDERABLES Final Resul t [facility] [address] [place] [address] * TTE COMPREHENSIVE (12/29/2024 10:45 AM EDT) Left Ventricle Internal Diameter End Diastole 51 37 - 52 mm Interventricular Septum Thickness 11 6 - 11 mm Height 173 cm Left Ventricle Internal Diameter End Systole 34 <35 mm Left Ventricular Posterior Wall Thickness 8 6 - 11 mm Ascending Aorta Diameter 33 <36 mm Weight 104 kg Raw LV EF% 56 % Left Atrium Dimension Anterior-Posterior 40 15 - 40 mm Body Surface Area 2.17 m2 Relative Wall Thickness 0.31 0.22 - 0.42 Left Ventricle indexed to BSA 80.9 g/m2 Ascending Aorta Index 15 mm/m2 Asc Aorta CSA Index by Height 4.94 cm2/m Ascending Aorta Index 15 mm Ascending Aorta Diameter 15 mm AO ASC DIAM BSA INDEX 15.21 Aortic Sinus Diameter 32 <40 mm Left Ventricular Apical Contribution 10 Left Atrial Volume Index 38 16 - 34 mL/m2 Ejection Fraction 66 50 - 75 % Left Atrium Dimension Medial-Lateral 46 29 - 49 mm Left Atrium Dimension Superior-Inferior 60 29 - 53 mm Left Atrial Volume 82 mL Left Atrial Volume Index by Height 47 mL/m Right Atrium Dimension Superior-Inferior 49 mm Right Atrium Index Superior-Inferior 23 19 - 30 mm/m2 Right Atrium Dimension Medial-Lateral 41 mm Right Atrium Dimension Medial-Lateral 19 13 - 25 mm/m2 Aortic Valve Sinus Index by BSA 15 mm/m2 Aorta Sinus Index by Height 1.85 cm/m Aorta Sinus CSA index by Height 4.65 cm2/m Aortic Sinus Index 15 mm Aortic Valve Sinus Index 1 15 19 - 27 mm Right Atrium Dimension Medial-Lateral 19 mm/m2 Right Atrium Index Superior-Inferior 23 mm/m2 Left Ventricle Ea Lateral Wave Speed 6.0 cm/s MV E/E' Tissue Velocity Lateral 12.00 Left Ventricle E Wave Speed 72.0 cm/s Left Ventricle Ea Septal Wave Speed 5.0 cm/s MV E/e' septal 14.40 Left Ventricle E/e' Average 13.2 Echo E/Ea 14.40 Anatomical Region Laterality Modality Heart Ultrasound Narrative 12/30/2024 10:20 AM EDT Normal biventricular size and systolic function. LVEF 66%. Left atrial dilation. No significant valvular dysfunction. Left Ventricle The left ventricle is normal in size. There is normal wall thickness. There is normal left ventricular systolic function. The LV ejection fraction is 66% (calculated via the single dimension method). There are no wall motion abnormalities. The e' septal wave velocity is 5.0 cm/s. The e' lateral wave velocity is 6.0 cm/s. The average E/e' ratio is 13.2. There is an apical LV diverticulum. Right Ventricle The right ventricle is normal in size. There is normal right ventricular systolic function. Left Atrium The left atrium is mildly dilated. The left atrial volume is 82 mL. The left atrial volume index by BSA is 38 mL/m2 (normal: 16-34 mL/m2). Right Atrium The right atrium is normal in size. The right atrial superior-inferior index is 23 mm/m2 (normal: 19-30 mm/m2). The right atrial medial-lateral index is 19 mm/m2 (normal: 13-25 mm/m2). The IVC is normal in size with normal inspiratory collapse. Mitral Valve There is no evidence of mitral valve prolapse. There is thickening of the posterior mitral leaflet. There is posterior mitral annular calcification. There is trace mitral regurgitation. Tricuspid Valve There is trace tricuspid regurgitation. RV systolic pressure could not be estimated due to insufficient TR Doppler envelope. Aortic Valve The aortic valve is tricuspid. There is no aortic stenosis. There is no aortic regurgitation. Pulmonic Valve There is no pulmonic stenosis. There is trace pulmonic regurgitation. Pericardium There is no pericardial effusion. General Findings The image quality was fair (3). Comparison Findings There are no prior studies for comparison. us Susan Hernandez MD CV ECHO ORDERABLES Final Result * ECG 12-LEAD (12/04/2024 10:02 AM EDT) Systolic Blood Pressure [facility] Diastolic Blood Pressure [facility] Ventricular Rate EKG/MIN 67 BPM [facility] Atrial Rate 67 BPM [facility] WA Interval 174 ms [facility] QRS Duration 110 ms [facility] QT Interval 424 ms [facility] QTC Interval 448 ms [facility] P [place] 46 degrees [facility] R Wave [place] -54 degrees [facility] T Wave [place] 31 degrees [facility] 12/04/2024 10:0 2 AM EDT 12/05/2024 3:23 PM EDT Narrative [facility] - 12/05/2024 3:23 PM EDT NORMAL SINUS RHYTHM LEFT ANTERIOR HEMIBLOCK HIGH QRS VOLTAGE MAY BE NORMAL VARIANT OR DUE TO LVE ( Jesus product ) DELAYED PRECORDIAL R WAVE TRANSITION nonspecific T wave changes ABNORMAL ECG WHEN COMPARED WITH ECG OF 20-Feb-2020 18:31, LEFT ANTERIOR HEMIBLOCK IS NOW PRESENT SEPTAL INFARCT IS NOW PRESENT us Susan Hernandez MD ECG ORDERABLES Final Result [facility] * MRI BRAIN (INTERNAL AUDITORY CANAL) WITH AND WITHOUT CONTRAST (12/01/2024 2:13 PM EDT) Anatomical Region Laterality Modality Head Magnetic Resonan ce 12/03/2024 9:00 AM EDT Impressions 12/05/2024 12:28 AM EDT Stable postsurgical findings from resection of vestibular schwannoma without evidence of residual or recurrent tumor. ATTESTATION: I, Dr. Kaiden Herman as teaching physician, have reviewed the images for this case and if necessary edited the report originally created by Chris Rascon. Narrative 12/05/2024 12:28 AM EDT MRI BRAIN (INTERNAL AUDITORY CANAL) WITH AND WITHOUT CONTRAST Referring clinician's provided indication for this examination in Epic: * Brain mass or lesion TECHNIQUE: Multi-sequence, multi-planar MRI of the brain including high resolution images of the temporal bones was performed before and after intravenous contrast. COMPARISON: MRI BRAIN (INTERNAL AUDITORY CANAL) WITH AND WITHOUT CONTRAST ; MRI BRAIN (INTERNAL AUDITORY CANAL) WITH AND WITHOUT CONTRAST FINDINGS: Limited study due to marked motion degradation of multiple MRI sequences. Findings in this report are reported within this limitation. 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 Redemonstration of left lateral cerebellar convexity extra-axial cerebrospinal fluid collection measuring up to 15 mm in greatest dimension with mild compression upon the underlying left cerebellar hemisphere. Unchanged curvilinear enhancement along the resection cavity, likely representing postsurgical changes. No evidence of residual nodular enhancement in the left internal auditory canal or left cerebellopontine angle to suggest residual tumor. Inner Ear Structures: Loss of expected signal in the left cochlea, unchanged from prior postsurgical imaging. Otherwise, preserved expected signal in the labyrinth. No MRI evidence for an inner ear anomaly. Brain Parenchyma: No evidence of acute infarct, mass lesion, or hemorrhage. There are scattered T2/FLAIR hyperintensities in the supratentorial white matter, which are nonspecific but often represent sequela of chronic small vessel disease. Ventricular System and Extra-Axial Spaces: No evidence of midline shift or hydrocephalus. Bilateral mastoid air cells are clear. Mild scattered paranasal sinus mucosal thickening. Miscellaneous: None. Procedure Note Kaiden Talbert MD - 12/05/2024 MRI BRAIN (INTERNAL AUDITORY CANAL) WITH AND WITHOUT CONTRAST Referring clinician's provided indication for this examination in Epic: *Brain mass or lesion TECHNIQUE: Multi-sequence, multi-planar MRI of the brain including highresolution images of the temporal bones was performed before and afterintravenous contrast. COMPARISON: MRI BRAIN (INTERNAL AUDITORY CANAL) WITH AND WITHOUT [id number]; MRI BRAIN (INTERNAL AUDITORY CANAL) WITH AND WITHOUT [id number] FINDINGS: Limited study due to marked motion degradation of multiple MRI sequences.Findings in this report are reported within this limitation. Internal Auditory Canals, Cerebellopontine Angles, and Intracranial 7thand 8th Nerve Complexes: Postsurgical changes from prior left suboccipitalcraniotomy for resection of left cerebellopontine angle vestibularschwannoma. Redemonstration of left lateral cerebellar convexityextra-axial cerebrospinal fluid collection measuring up to 15 mm ingreatest dimension with mild compression upon the underlying leftcerebellar hemisphere. Unchanged curvilinear enhancement along theresection cavity, likely representing postsurgical changes. No evidence ofresidual nodular enhancement in the left internal auditory canal or leftcerebellopontine angle to suggest residual tumor. Inner Ear Structures: Loss of expected signal in the left cochlea,unchanged from prior postsurgical imaging. Otherwise, preserved expectedsignal in the labyrinth. No MRI evidence for an inner ear anomaly. Brain Parenchyma: No evidence of acute infarct, mass lesion, orhemorrhage. There are scattered T2/FLAIR hyperintensities in thesupratentorial white matter, which are nonspecific but often representsequela of chronic small vessel disease. Ventricular System and Extra-Axial Spaces: No evidence of midline shift orhydrocephalus. Bilateral mastoid air cells are clear. Mild scatteredparanasal sinus mucosal thickening. Miscellaneous: None. IMPRESSION: Stable postsurgical findings from resection of vestibular schwannomawithout evidence of residual or recurrent tumor. ATTESTATION: I, Dr. Kaiden Herman as teaching physician, havereviewed the images for this case and if necessary edited the reportoriginally created by Chris Rascon. 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 It is not the complete legal health record.[facility]
--- OUTSIDE RECORDS SUMMARY | 2025-02-19 13:14 | XMS_ITS | Clinical Summary ---
Author Organization [facility] Address [address] [place] [address] [address] Care Team Providers Care Sports Bookmaker Name Role Phone Poc, Non [facility] Or Primary Care Provider Jeaneth vailable Allergies No known active allergies Medications No known medications Social History Tobacco Use Types Packs/Day Years Used Date Smoking Tobacco: Never Assessed Comments Unknown Sex and Gender Information Value Date Recorded Sex Assigned at Not on file Legal Sex Female 1:22 AM EDT Gender Identity Not on file Sexual Orientation Not on file Plan of Treatment Health Maintenance Due Date Last Done Comments HEP B INITIAL SCREENING 1979 HIV SCREENING 1979 LIPID SCREENING 1981 DTAP/TDAP/TD VACCINE (1 - Tdap) 1982 PAP: UPDATE W EDIT MODIFIERS 1982 * GLUCOSE OR A1C SCREENING - Q3YR 01/13/1996 HEP C SCREENING 1997 MAMMOGRAPHY: 1 YR 2001 COLORECTAL SCREENING: UPDATE W EDIT MODIFIERS 2006 PERIODIC HEALTH REVIEW 2011 PNEUMOCOCCAL VACCINE(S) 50+ (1 of 1 - PCV) 2011 ZOSTER VACCINE (1 of 2) 2011 COVID-19 Vaccine (1 - 2023-2 5 season) 2025 FLU SEASONAL (#1) 01/21/2025 HAEMOPHILUS INFLUENZA VACCINE Aged Out No longer eligible based on patient's age to complete this topic HEPATITIS A VACCINE Aged Out No longe r eligible based on patient's age to complete this topic HEPATITIS B VACCINE Aged Out No longe r eligible based on patient's age to complete this topic POLIO VACCINE Aged Out No longer elig ible based on patient's age to complete this topic RSV Vaccine //toddler Aged Out No longer eligible based on patient's age to complete this topic Care Teams Sports Bookmaker Relationship Specialty Start Date End Date Poc, Non [facility] Pcp Or PCP - General 01/21/1997
--- OUTSIDE RECORDS SUMMARY | 2025-02-19 13:14 | XMS_ITS | Encounter Summary ---
Author Organization [facility] Address [address] [place] [address] Phone Care Team Providers Care Insurance Licensing Supervisor Name Role Phone Shorty Díaz DO Primary Care Provider Moreno Walter MD Primary Care Provider [phone] Elsa Telles MD Primary Care Provider + Tarah Silvestre MD Primary Care Provider [phone] Encounter Details Date Type Department Care Team (Late st Contact Info) Description 04/23/2020 Procedure Pass [facility] - CT, Main [place] [address] [place], [place] [id number] Social History Tobacco Use Types Packs/Day Years [...] Description 12/04/2025 1:00 PM EDT Office Visit [facility] [place] [address], [address] [place] [address] Susan Hernandez MD [address] [place] [address] YAW-[id number] GR[address] [place] [phone] [email or web address] documented as of this encounter Visit Diagnoses Not on filedocumented in this encounter Care Teams Insurance Licensing Supervisor Relationship Specialty Start Date End Date Shorty Díaz DO [address] [place] [address] PCP - General Internal Medicine 01/09/20 05/25/20 Moreno Walter MD [address] [place] [address] PCP - General Family Medicine 05/26/20 09/08/21 Elsa Telles MD [address] [place] [address] PCP - General Family Medicine 09/09/21 04/20/23 Tarah Silvestre MD [facility] [place] [address] PCP - General Internal Medicine 04/21/23 documented as of this encounter Additional Source Comments The information contained in this document represents components of the legal health record. It is not the complete legal health record.[facility]
--- OUTSIDE RECORDS SUMMARY | 2025-02-19 13:14 | XMS_ITS | Encounter Summary ---
Author Organization [facility] Address [address] [place] [address] Phone Care Team Providers Care Warehouse Director Name Role Phone Shorty Díaz DO Primary Care Provider [phone] Moreno Walter MD Primary Care Provider [phone] Elsa Telles MD Primary Care Provider + Tarah Silvestre MD Primary Care Provider [phone] Encounter Details Date Type Department Care Team (Late st Contact Info) Description 02/19/2020 Procedure Pass [facility] [address] [place] [phone] Social History Tobacco Use Types Packs/Day Years [...] Description 12/04/2025 1:00 PM EDT Office Visit [facility] [place] [facility] [address] [place] [address], [address] [place] [address] Susan Hernandez MD [address] [place] [address] YAW-[id number] [address] [place] [phone] [email or web address] documented as of this encounter Visit Diagnoses Not on filedocumented in this encounter Care Teams Warehouse Director Relationship Specialty Start Date End Date Shorty Díaz DO [address] [place] [address] PCP - General Internal Medicine 01/09/20 05/25/20 Moreno Walter MD [address] [place] [address] PCP - General Family Medicine 05/26/20 09/08/21 Elsa Telles MD [address] [place] [address] PCP - General Family Medicine 09/09/21 04/20/23 Tarah Silvestre MD [facility] [place] [address] PCP - General Internal Medicine 04/21/23 documented as of this encounter Additional Source Comments The information contained in this document represents components of the legal health record. It is not the complete legal health record.[facility]
--- OUTSIDE RECORDS SUMMARY | 2025-02-19 13:14 | XMS_ITS | Clinical Summary ---
Author Organization [facility] Address [address] [place] [address] Phone Care Team Providers Care Order Filler Name Role Phone Unavailable Primary Care Provider [...] 04/05/2013 10:44 AM EST Plan of Treatment Health Maintenance Due Date Last Done Comments HIV Lifetime Screening 1961 Hepatitis B Lifetime Screening 1961 Hepatitis C Antibody Lifetim e Screening 1961 LIPID PANEL 1961 THRIVE SCREENING 1961 Oral Health Screen 1961 HEIP Disability Screen 1966 BEHAVIORAL HEALTH SCREEN 1973 Psych Substance Use Screen 1973 DTAP/TDAP VACCINE (1 - Tdap) 01/13/1980 PAP SMEAR 1982 MAMMOGRAM 2001 Pneumonia Vaccine 50+ (1 of 1 - PCV) 2011 Zoster Vaccine (1 of 2) 2011 Diabetes Screening 04/05/2016 04/05/2013 COVID-19 Vaccine (1 - 2023-2 5 season) 2025 INFLUENZA VACCINE (#1) 2025 RSV Immunization 60 Years an d Older OR (1 - 1-dose 75+ series) 01/13/2036 Colorectal Cancer Screening Completed HPV VACCINES Aged Out No longer eligi ble based on patient's age to complete this topic IPV VACCINES Aged Out No longer eligi ble based on patient's age to complete this topic MENINGOCOCCAL B Aged Out No longer el igible based on patient's age to complete this topic ROTAVIRUS VACCINES Aged Out No longer eligible based on patient's age to complete this topic Procedures Procedure Name Priority Date/Time Associated Diagnosis Comments HEMOGLOBIN A1C Routine 04/05/2013 11:45 AM EST from Last 3 Months or Most Recently Relevant to Health Maintenance Results * Hemoglobin a1c (04/05/2013 11:45 AM EST) Hemoglobin A1C 5.3 4.0 - 6.0 % 3 2:41 PM EST [employer] 04/05/2013 11:4 5 AM EST 04/05/2013 11:50 AM EST us Obey Turcios MD LAB BLOOD ORDERABLES Final Re sult [facility] CLIA [id number] [address] [place] [address], from Last 3 Months or Most Recently Relevant to Health Maintenance
--- OUTSIDE RECORDS SUMMARY | 2025-02-19 13:14 | XMS_ITS | Encounter Summary ---
Author Organization [facility] [place] [facility] Address [address] [place] [address] Phone Care Team Providers Care Train Crew Member Name Role Phone Shorty Díaz DO Primary Care Provider [phone] Moreno Walter MD Primary Care Provider Elsa Telles MD Primary Care Provider + Tarah Silvestre MD Primary Care Provider [phone] Encounter Details Date Type Department Care Team (Late st Contact Info) Description 01/16/2020 Procedure Pass [facility] - MRI, [address] [address] Social History Tobacco Use Types Packs/Day Years Used Date Smoking Tobacco: Never Assessed Comments Unknown Sex and Gender Information Value Date Recorded Sex Assigned at Female 09/20/2023 8:52 AM EDT Legal Sex Female 7:44 PM EST Gender Identity Female 09/20/2023 8:52 AM EDT Sexual Orientation Straight 09/20/2023 8: 52 AM EDT documented as of this encounter Last Filed Vital Signs Vital Sign Reading Time Taken Comments Blood Pressure - - Pulse - - Temperature - - Respiratory Rate - - Oxygen Saturation - - Inhaled Oxygen Concentration - - Weight 90.7 kg (200 lb) 01/17/2020 2:55 PM EDT Height 172.7 cm (5' 8 ) 01/17/2020 2:55 PM EDT Body Mass Index 30.41 01/17/2020 2:55 PM EDT documented in this encounter Plan of Treatment Upcoming Encounters Date Type Department Care Team (Late st Contact Info) Description 12/04/2025 1:00 PM EDT Office Visit [facility] [address] [facility], [address] [place] [address] Susan Hernandez MD [address] [place] [address] [address] [place] [phone] [email or web address] documented as of this encounter Visit Diagnoses Not on filedocumented in this encounter Care Teams Train Crew Member Relationship Specialty Start Date End Date Shorty Díaz DO [address] [place] [address] PCP - General Internal Medicine 01/09/20 05/25/20 Moreno Walter MD [address] [place] [address] PCP - General Family Medicine 05/26/20 09/08/21 Elsa Telles MD [address] [place] [address] PCP - General Family Medicine 09/09/21 04/20/23 Tarah Silvestre MD [address] [place] [address] [place] [address] PCP - General Internal Medicine 04/21/23 documented as of this encounter Additional Source Comments The information contained in this document represents components of the legal health record. It is not the complete legal health record.[facility] [place] [facility]
--- OUTSIDE RECORDS SUMMARY | 2025-02-19 13:15 | XMS_ITS | Encounter Summary ---
Author Organization [facility] Address [facility] [address] [place] [address] Phone Care Team Providers Care History Card Clerk Name Role Phone Tarah Silvestre MD Primary Care Provider [phone] Encounter Details Date Type Department Care Team (Late st Contact Info) Description 12/04/2024 Procedure Pass [facility] Cardiology [address] [facility], [address] [place] [id number] Social History Tobacco Use Types Packs/Day Years [...] Description 12/04/2025 1:00 PM EDT Office Visit [facility] Card[facility] [address], [address] [place] [address] Susan Hernandez MD [address] [place] [address] YA-05-5B B [address] [place] [phone] [email or web address] documented as of this encounter Visit Diagnoses Not on filedocumented in this encounter Care Teams History Card Clerk Relationship Specialty Start Date End Date Tarah Silvestre MD [address] [facility] [place] [address] PCP - General Internal Medicine 04/21/23 documented as of this encounter Additional Source Comments The information contained in this document represents components of the legal health record. It is not the complete legal health record.[facility]
--- OUTSIDE RECORDS SUMMARY | 2025-02-19 13:15 | XMS_ITS | Clinical Summary ---
Author Organization [facility] Address [address] [place] [address] Care Team Providers Care Partner Integration Planner Name Role Phone Tereso Stahl Primary Care Provider [phone] Allergies No known active allergies Medications Sulfacetamide Sodium 10 % EX LOTN once dialy Active Sulfacetamide Sodium, Acne, 10 % Lotion bid 1 Bottle 11 3 Active Sulfacetamide Sodium, Acne, 10 % Lotion APPLY TOPICALLY TWICE A DAY DIRECTED 118 mL 0 6 Active Clindamycin Phosphate 1 % Gel APPLY TO FACE ONCE DAILY 60 g 0 6 Active Active Problems No known active problems Social History Tobacco Use Types Packs/Day Years Used Date Smoking Tobacco: Never Alcohol Use Standard Drinks/Week Comments Not Asked 0 (1 standard drink = 0.6 oz pur e alcohol) Intimate Partner Violence Answer Date R ecorded Fear of Current or Ex-Partner Not on file Emotionally Abused Not on file 01/10/2023 Physically Abused Not on file 01/10/2023 Sexually Abused Not on file 01/10/2023 Feel Safe at Home Not on file 01/10/2023 Comments Unknown Sex and Gender Information Value Date Recorded Sex Assigned at Not on file Legal Sex Female 3:01 AM EDT Gender Identity Not on file Sexual Orientation Not on file Plan of Treatment Health Maintenance Due Date Last Done Comments Hepatitis C Screening 1961 Pap Smear 1977 DTaP/Tdap/Td (1 - Tdap) 1979 Mammogram/Breast Imaging 2001 Colon Cancer Screening 2006 Pneumococcal 50+ years (1 of 1 - PCV) 2011 Zoster (Shingrix) (1 of 2) 2011 COVID-19 Vaccine (1 - 2023-2 5 season) 2025 Influenza (#1) 2025 RSV (1 - 1-dose 75+ series) 01/13/2036 HPV Vaccine (No Doses Required) Completed Hep A Aged Out No longer eligi ble based on patient's age to complete this topic Hep B Aged Out No longer eligi ble based on patient's age to complete this topic Hib Aged Out No longer eligi ble based on patient's age to complete this topic Meningococcal ACWY Aged Out No longer eligible based on patient's age to complete this topic Zoster (Zostavax) Discontinued Care Teams Partner Integration Planner Relationship Specialty Start Date End Date Tereso Stahl [address] [place] [address] PCP - General Internal Medicine 09/24/10
--- OUTSIDE RECORDS SUMMARY | 2025-02-19 13:15 | XMS_ITS ---
Author Name [facility] Organization Unknown History of Medication Use Medication Directions Dispensed Refills Start Date End Date Stat betamethasone valerate 0.1 % topical ointment APPLY A THIN LAYER TO THE AFFECTED AREA(S) BY TOPICAL ROUTE ONCE DAILY 01/19/2024 active neomycin-polymyxin- dexameth 3.5 mg/mL-10,000 unit/mL-0.1% eye drops INSERT 1 DROP INTO LEFT EYE FOUR TIMES DAILY FOR 7 DAYS. completed betamethasone valerate 0.1 % topical ointment active azelastine 137 mcg (0.1 %) nasal spray 2 SPRAYS BY NASAL ROUTE 2 (TWO) TIMES A DAY. 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 [facility], [facility] 02/14/2025 Ambulatory Acute vaginitis Acute vaginitis [facility], [facility] 03/14/2024 Ambulatory 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
--- OUTSIDE RECORDS SUMMARY | 2025-02-19 13:15 | XMS_ITS | Encounter Summary ---
Author Organization [facility] Address [facility] [address] [place] [address] Phone Care Team Providers Care Cleaner Operator Name Role Phone Tarah Silvestre MD Primary Care Provider [phone] Encounter Details Date Type Department Care Team (Late st Contact Info) Description 09/11/2024 Procedure Pass MRI, [facility] Imaging - [address], [address] [place], [place] [phone] Social History Tobacco Use Types Packs/Day Years [...] Description 12/04/2025 1:00 PM EDT Office Visit [facility] [address] [facility], [address] [place] [address] Susan Hernandez MD [address] [place] [address] YAW-05-5B [address] [place] [phone] [email or web address] documented as of this encounter Visit Diagnoses Not on filedocumented in this encounter Care Teams Cleaner Operator Relationship Specialty Start Date End Date Tarah Silvestre MD [address] [facility] [place] [address] PCP - General Internal Medicine 04/21/23 documented as of this encounter Additional Source Comments The information contained in this document represents components of the legal health record. It is not the complete legal health record.[facility]
--- OUTSIDE RECORDS SUMMARY | 2025-02-19 13:15 | XMS_ITS | Encounter Summary ---
Author Organization [facility] Address [address] [place] [address] [place] [address] Phone Care Team Providers Care Nuclear Radiation Engineer Name Role Phone Moreno Walter MD Primary Care Provider Elsa Telles MD Primary Care Provider + Tarah Silvestre MD Primary Care Provider [phone] Encounter Details Date Type Department Care Team (Late st Contact Info) Description 06/03/2021 Procedure Pass MRI, [facility] - [place] [address] [facility], [address] [place], [place] [phone] Social History Tobacco Use Types Packs/Day Years [...] Description 12/04/2025 1:00 PM EDT Office [place] [facility] [place] [facility] [place] [facility] [address] [facility], [address] [place], [place] [phone] Susan Hernandez MD [address] [place] [address] YAW-05-5B GRB [address] [place] [phone] [email or web address] documented as of this encounter Visit Diagnoses Not on filedocumented in this encounter Care Teams Nuclear Radiation Engineer Relationship Specialty Start Date End Date Moreno Walter MD [address] [place] [address] PCP - General Family Medicine 05/26/20 09/08/21 Elsa Telles MD [address] [place] [address] PCP - General Family Medicine 09/09/21 04/20/23 Tarah Silvestre MD [facility] [place] [address] PCP - General Internal Medicine 04/21/23 documented as of this encounter Additional Source Comments The information contained in this document represents components of the legal health record. It is not the complete legal health record.[facility]
== END 2025-02-19 16:00 | disposition home or self-care (01) ==
LOC: HO.HMCC 11:58
PROVIDERS: PCP Internal Medicine; Visit Provider Internal Medicine
DX: I10 Essential (primary) hypertension (principal); Z00.00 Encounter for general adult medical examination without abnormal findings; E78.5 Hyperlipidemia, unspecified

== ENCOUNTER → 2025-02-19 11:58 | Outpatient (BNVA) | payer OTHER, SELFPAY | PROVIDERS: PCP Internal Medicine; Visit Provider Internal Medicine | DX: Z00.00 Encounter for general adult medical examination without abnormal findings (principal); I10 Essential (primary) hypertension; E78.5 Hyperlipidemia, unspecified; E55.9 Vitamin D deficiency, unspecified | CPT/HCPCS: 99396 ==